=== PATIENT | female | born 1935 | race Caucasian/White ===

== ENCOUNTER 2017-02-04 17:03 | Emergency (ER) | payer MEDICARE, BC | END 2017-02-04 20:20 | disposition home or self-care (01) | LOC: D.ER 17:03 | DX: S40.011A Contusion of right shoulder, initial encounter (principal); W01.0XXA Fall on same level from slipping, tripping and stumbling without subsequent striking against object, initial encounter; Y93.89 Activity, other specified; Y92.019 Unspecified place in single-family (private) house as the place of occurrence of the external cause; S20.211A Contusion of right front wall of thorax, initial encounter; E11.9 Type 2 diabetes mellitus without complications ==

== ENCOUNTER 2017-04-21 06:55 | Outpatient (CLI) | payer MEDICARE, BC ==
--- NOTE | ~2017-04-21 | HEMODYNAMI ---
PATIENT:LIOR SHAH MEDICAL RECORD: [id number] : 35 LOCATION:[facility] ADMISSION DATE: 04/21/17 Generatedon:04/21/20179:17 Patient name: LIOR SHAH Patient #: [id number] SSN: D OB: 1935 Date of study: 04/21/2017 Page: Of Hemodynamic Procedure Report Patient Data Patient Demographics Procedure consent was obtained First Name: LIOR Gender: Female Last Name: PABOL : 1935 Middle Initial: L Age: 81 year(s) Patient #: [id number] Race: Unknown Additional ID: [id number] Contact details [address]: [address] [place] [address] State: [place] City: [facility] [place] Zip code: [address] Past Medical History Allergies Allergen Reaction Date Comments Reported Other allergy 04/21/2017 Codeine, Cortisone Admission Admission Data Admission Date: 04/21/2017 Admission Time: 6:55 Lab Results Lab Result Date: 04/21/2017 Lab Result Time: 8:00 Biochemistry Name Units Result Min Max BUN mg/dl 13 --(--*-)-- 7 18 Creatinine mg/dl 1 --(--*-)-- 0.6 1.3 CBC Name Units Result Min Max Hematocrit % 36.6 *-(----)-- 42 54 Hemoglobin g/dl 11.6 *-(----)-- 13.5 17.5 Procedure Procedure Types Cath Procedure Miscellaneous Procedures Moderate Sedation up to 15 minutes Peripheral Cath Diagnostic Procedure Cath Peripheral Xfzse-Hbkgnux-Ezi-Off Procedure Description Procedure Date Procedure Date: 04/21/2017 Procedure Start Time: 9:05 Procedure End Time: 9:13 Procedure Staff Name Function Je Baron MD Performing Physician Dominique Cruz RT Scrub Romain Salgado RT Scrub Zana Hannah RN Nurse Kobe Trujillo RT Monitor Woody Jones RN Information Technology Intern Procedure Data Cath Procedure Fluoroscopy Diagnostic fluoroscopy Total fluoroscopy Time: 1.1 time: 1.1 min min Diagnostic fluoroscopy Total fluoroscopy dose: 91 dose: 91 mGy mGy Contrast Material Contrast Material Type Amount (ml) Isovue 300 55 Entry Location Entry Primary Successful Side Size Upsize Upsize Entry Closure Succes sful Closure Location (Fr) 1 (Fr) 2 (Fr) Remarks Device Remarks Femoral Right 5 Fr Exoseal artery Estimated blood loss: 5 ml Diagnostic catheters Device Type Used For End Catheter Placement Cordis Tempo 5Fr UF Procedure catheter Procedure Complications No complications Procedure Medications Medication Administration Route Dosage 0.9% NaCl I.V. 100 ml/hr Oxygen NC 2 l/min Heparin Flush Bag added to field 2 bags (1000units/500ml NS) Lidocaine 2% added to field 20 Versed I.V. 0.5 mg Fentanyl I.V. 25 mcg Hemodynamics Rest HGB: 11.6 (g/dl) Heart Rate: 74 (bpm) Snapshots Pre Cath Intra NCS Post Cath Vital Signs Time Heart Resp SPO2 etCO2 [id number] NIBP (mmHg) Rhythm Pain Sedation Rate (ipm) (%) (mmHg) (mmHg) Status Level (bpm) 8:52:53 71 21 100 0 0 194/94(144) NSR 0 (11) 10(A) , No pain 8:57:46 68 20 100 0 0 191/80(148) NSR 0 (11) 10(A) , No pain 9:02:35 63 19 98 0 0 158/80(107) NSR 0 (11) 10(A) , No pain 9:07:17 67 15 95 0 0 158/88(112) NSR 0 (11) 10(A) , No pain 9:12:02 63 14 98 0 0 151/75(119) NSR 0 (11) 9(A) , No pain Medications Time Medication Route Dose Verified Delivered Reason Notes Effec tiveness by by 8:52:46 0.9% NaCl I.V. 100 Zana Zana Per ml/hr Brielle Hannah physician RN RN 8:53:02 Oxygen NC 2 Zana Zana Per l/min Brielle Hannah physician RN RN 8:53:17 Heparin Flush added 2 Zana Zana used for Bag to bags Brielle Hannah procedure (1000units/500ml field RN RN NS) 8:53:32 Lidocaine 2% added 20ml Zana Zana for local to vial Brielle Hannah anesthetic field RN RN 8:55:34 Versed I.V. 0.5 Zana Spann for mg Lorigan Lorigan sedation RN RN 9:03:56 Fentanyl I.V. 25 Zana Spann for mcg Lorigan Lorigan sedation RN professor computer science Log Time Note 8:15:18 Woody Jones RN sent for patient. Start room use. 8:39:26 Time tracking: Regular hours 8:39:30 Plan of Care:Hemodynamics will remain stable., Cardiac rhythm will remain stable., Comfort level will be maintained., Respiratory function will remain adequate., Patient/ family verbilizes understanding of procedure., Procedure tolerated without complication., Recovers from procedure without complications.. 8:39:43 H&P Date Dictated: 04/08/2017 Within 30 days and on chart., H&P Addendum completed by physician on day of procedure. (MUST COMPLETE FOR ALL OUTPATIENTS). 8:41:44 Lab Result : Creatinine 1 mg/dl 8:41:44 Lab Result : BUN 13 mg/dl 8:41:44 Lab Result : Hematocrit 36.6 % 8:41:44 Lab Result : Hemoglobin 11.6 g/dl 8:41:51 Patient received from Pre/Post Procedure Room to CCL 1 Alert and oriented. Tansferred to table in Supine position. 8:41:52 Warm blankets applied, and shani hugger turned on for patient comfort. 8:41:52 Correct patient and procedure confirmed by team. 8:41:54 Signed procedure consent form obtained from patient. 8:41:55 ECG and BP/O2 sat monitors applied to patient. 8:41:56 Pre-procedure instructions explained to patient. 8:41:56 Pre-op teaching completed and patient verbalized understanding. 8:41:58 Family in waiting room. 8:41:59 Patient NPO since Midnight. 8:42:15 Patient allergic to Other allergyCodeine, Cortisone 8:46:06 Is the patient allergic to Iodine/contrast media? No. 8:46:07 Is patient on blood thinner?No 8:46:08 Patient diabetic? Yes. 8:46:09 If diabetic: On Metformin? No 8:46:13 Previous problem with sedation/anesthesia? No ? 8:46:14 Snore? No 8:46:15 Sleep apnea? No 8:46:16 Deviated septum? No 8:46:16 Opens mouth fully? Yes 8:46:17 Sticks out tongue? Yes 8:46:19 Airway obstruction? No ? 8:46:21 Dentures? No ? 8:46:24 Patient pain scale 0/10 ?. 8:46:53 IV patent on arrival in left forearm with 0.9% NaCl at [facility]. 8:46:56 Lab results completed and on chart. 8:47:59 Pre procedure: right dorsailis pedis pulse Doppler 8:48:02 Pre procedure: left dorsailis pedis pulse 2+ Normal; easily identifiable; not easily obliterated 8:48:11 Bilateral groins area was prepped with chlora-prep and draped in sterile fashion 8:48:13 Alarms reviewed by R. N. 8:48:13 Sharps counted by scrub and verified by R.N. 8:48:18 Tegaderm 4 x 4 opened to sterile field. 8:48:19 Acist Manifold opened to sterile field. 8:48:19 Acist Hand Control opened to sterile field. 8:48:21 Acist Syringe opened to sterile field. 8:48:21 Bag Decanter opened to sterile field. 8:48:22 Medline Cath Pack opened to sterile field. 8:48:22 Terumo 5Fr [place] Sheath opened to sterile field. 8:48:23 St Savage 260cm J .035 wire opened to sterile field. 8:51:12 Vital chart was started 8:51:14 Baseline sample Acquired. 8:51:17 Rhythm: sinus rhythm 8:51:20 Full Disclosure recording started 8:52:46 0.9% NaCl 100 ml/hr I.V. was administered by Zana Hannah RN; Per physician; 8:53:02 Oxygen 2 l/min NC was administered by Zana Hannah RN; Per physician; 8:53:17 Heparin Flush Bag (1000units/500ml NS) 2 bags added to field was administered by Zana Hannah RN; used for procedure; 8:53:32 Lidocaine 2% 20ml vial added to field was administered by Zana Hannah RN; for local anesthetic; 8:54:46 --------ALL STOP TIME OUT------ 8:54:47 Final Timeout: patient, procedure, and site verified with staff and physician. All members of the team are in agreement. 8:54:58 Bilateral groins site verified by team. 8:55:04 Physical assessment completed. ASA score P 2 - A patient with mild systemic disease as per Je Baron MD. 8:55:09 Sedation plan: IV Moderate Sedation Versed, Fentanyl 8:55:34 Versed 0.5 mg I.V. was administered by Zana Hannah RN; for sedation; 9:03:24 Zero performed for pressure channel P1 9:03:56 Fentanyl 25 mcg I.V. was administered by Zana Hannah RN; for sedation; 9:05:25 Procedure started. 9:05:48 Local anesthetic to right femoral artery with Lidocaine 2% by Je Baron MD.INITIAL ACCESS ONLY 9:06:56 A 5 Fr sheath was inserted into the Right Femoral artery 9:08:25 A Cordis Tempo 5Fr UF catheter was advanced over the wire and used for Procedure. 9:08:59 Abdominal angiogram w/ runoff was performed. 9:09:02 Left leg runoff performed. 9:10:15 Right leg runoff performed. 9:10:20 Catheter removed. 9:10:27 Cordis 5Fr Exoseal opened to sterile field. 9:10:36 Sheath removed intact; hemostasis achieved with Exoseal to the Right Femoral artery. 9:10:38 Procedure ended.(Physican Out) 9:10:42 Contrast amount:Isovue 300 55ml. 9:10:47 Fluoroscopy time 01.10 minutes. 9:10:50 Fluoroscopy dose: 91 mGy 9:10:50 Flurop Dose total: 91 9:10:52 Sharps counted by scrub and verified by R.N. 9:10:53 Insertion/operative site no bleeding no hematoma. 9:10:55 Post-op/insertion site Right Femoral artery dressed using a 4 x 4 and Tegaderm. 9:10:58 Post right femoral artery:stable, soft, clean and dry 9:11:00 Post Procedure Pulses reassessed and unchanged 9:11:02 Post-procedure physical assessment completed. ASA score P 2 - A patient with mild systemic disease as per Je Baron MD. 9:11:05 Post procedure rhythm: unchanged. 9:11:07 Estimated blood loss: 5 ml 9:11:08 Post procedure instruction explained to patient.Patient verbalizes understanding. 9:11:08 Patient needs reinforcement of post procedure teaching. 9:11:39 Procedure type changed to Cath procedure, Miscellaneous Procedures, Moderate Sedation up to 15 minutes, Peripheral Cath Diagnostic Procedure, Cath Peripheral, Zwhsk-Ixgnmcu-Lum-Off 9:13:44 Procedure and supply charges have been captured, reviewed, submitted and are correct. 9:13:47 Procedure Complication : No complications 9:13:48 Vital chart was stopped 9:13:48 See physician's report for complete and final results. 9:13:50 Report given to Pre/Post Procedure Room. 9:13:52 Patient transfered to Pre/Post Procedure Room with Stretcher. 9:13:54 Procedure ended. 9:13:54 Full Disclosure recording stopped 9:13:59 End room use (Document Last) Device Usage Item Manufacture Quantity Catalog Hospital Part Current Minimal Lot# / Name Number Charge Number Stock Stock Osmin tyson# Code Tegaderm 1 [id number] [id number] [id number] 5 4 x 4 Acist Acist 1 75014 429704 [id number] [id number] 5 Manifold Medical Systems Inc Acist Acist 1 79434 259410 264338 505887 5 Hand Medical Control Systems Inc Acist Acist 1 40145 179464 122713 812821 20 Syringe Medical Systems Inc Bag Microtek 1 2002S 941210 28123 876146 5 Decanter Medical Inc. Medline Cardinal 1 [id number] 989994 72927 955989 5 Cath Health Pack Terumo Terumo 1 [id number] 860217 953806 [address] Savage 1 896202 528646 138251 718795 30 260cm J .035 wire Cordis Cardinal 1 [id number] 210702 475184 003003 10 Tempo Health 5Fr UF catheter Cordis Cardinal 1 EX500 141692 261596 819017 10 5Fr Health Exoseal Signature Audit [place] Stage Time Signature Unsigned Intra-Procedure 04/21/2017 Kobe Trujillo 9:17:41 AM RT(R) Signatures Monitor : Kobe Trujillo RT Signature : Date : Time : [facility] [address] [place] [address]
[2017-04-21] MEDS ORDERED: BAYER CHEWABLE81 MG PO (07:21)
[2017-04-21] MEDS ORDERED: FISH OIL 1,2001 CAP PO (07:21)
[2017-04-21] MEDS ORDERED: NYSTATIN ORAL SU5 ML PO (07:22)
[2017-04-21] MEDS ORDERED: CITRATE OF MAG300 ML PO (07:22)
[2017-04-21] MEDS ORDERED: OCUVITE TABLET1 TA1 PO (07:23)
[2017-04-21] MEDS ORDERED: OXYBUTYNIN CHLOR5 MG PO (07:23)
[2017-04-21] MEDS ORDERED: ZOLOFT100 MG PO (07:24)
[2017-04-21] MEDS ORDERED: TIKOSYN250 MCG PO (07:24)
[2017-04-21] MEDS ORDERED: OMEPRAZOLE40 MG PO (07:24)
[2017-04-21] MEDS ORDERED: VITAMIN D5000 UNIT PO (07:25)
[2017-04-21] MEDS ORDERED: VITAMIN B-12500 MC1 PO (07:25)
[2017-04-21] MEDS ORDERED: ACETAMINOPHEN500 M1 PO (07:25)
[2017-04-21 07:34] VITALS: BP 144/74; BMI 28.2
[2017-04-21 07:37] LABS: BASOPHILS 0.4 % (0-2); EOSINOPHILS 1.8 % (0-7); HEMATOCRIT 36.6 % (36.0-48.0); HEMOGLOBIN 11.6 g/dL (12-16); IMMATURE GRANULOCYTES 0.2 % (0-5); LYMPHOCYTES 28.3 % (15-50); MCH 27.2 pg (26.0-34.0); MCHC 31.7 g/dL (31.0-37.0); MCV 85.7 fL (80.0-100.0); MEAN PLATELET VOLUME 10.3 fL (7.4-10.4); MONOCYTES 10.7 % (2-11); NEUTROPHILS 58.6 % (40-80); PLATELET COUNT 131 10x3/uL (130-400); RBC 4.27 10x6/uL (4.00-5.40); RDW 16.2 % (11.5-14.5); WBC 4.9 10x3/uL (4.8-10.8)
[2017-04-21 08:21] LABS: ANION GAP 10.9 mmol/L (8-16); CALCIUM 9.5 mg/dL (8.5-10.1); CARBON DIOXIDE 28.3 mmol/L (21.0-32.0); POTASSIUM - SERUM 4.2 mmol/L (3.5-5.1)
--- NOTE | 2017-04-21 09:40 | NUR ---
2L NC, NO RESP DISTRESS NOTED. RIGHT GROIN 5F EXOSEAL CDI, NO BLEEDING OR HEMATOMA NOTED. NO C/O PAIN OR NAUSEA. VSS. INSTRUCTED PT TO KEEP HEAD FLAT ON PILLOW AND RIGHT LEG STRAIGHT. FAMILY AT BEDSIDE, CALL LIGHT WITHIN REACH.
--- NOTE | 2017-04-21 10:10 | NUR ---
RESTING QUIETLY WITH EYES CLOSED. RIGHT GROIN 5F EXOSEAL CDI, NO BLEEDING OR HEMATOMA NOTED. NO C/O PAIN OR NAUSEA. VSS. CALL LIGHT WITHIN REACH.
--- NOTE | 2017-04-21 10:25 | NUR ---
2L NC, NO RESP DISTRESS NOTED. RIGHT GROIN 5F EXOSEAL CDI, NO BLEEDING OR HEMATOMA NOTED. VSS. NO C/O AT THIS TIME. WILL CONTINUE TO MONITOR.
--- NOTE | 2017-04-21 10:55 | NUR ---
RESTING QUIETLY IN BED WITH EYES CLOSED. VSS. RIGHT GROIN 5F EXOSEAL CDI, NO BLEEDING OR HEMATOMA NOTED. NO C/O PAIN AT THIS TIME. CALL LIGHT WITHIN REACH.
--- NOTE | 2017-04-21 11:25 | NUR ---
RIGHT GROIN 5F EXOSEAL CDI, NO BLEEDING OR HEMATOMA NOTED. 2L NC, NO RESP DISTRESS NOTED. VSS. NO C/O PAIN. WILL CONTINUE TO MONITOR.
--- NOTE | 2017-04-21 12:00 | NUR ---
HOB ELEVATED 30 DEGREES. RIGHT GROIN 5F EXOSEAL CDI. SANDWICH TRAY AND DRINK GIVEN. NO C/O NAUSEA.
--- NOTE | 2017-04-21 12:22 | NUR ---
LEFT FA PIV D/C'D WITH CATHETER INTACT, BAND AID TO SITE. UP TO BEDSIDE TO GET DRESSED.
--- NOTE | 2017-04-21 12:31 | NUR ---
TO RESTROOM TO VOID.
--- NOTE | 2017-04-21 12:44 | NUR ---
DISCHARGE INSTRUCTIONS GIVEN, VERBALIZED UNDERSTANDING. TAKEN OUT VIA WHEELCHAIR BY CATH SENIOR AUDITOR. LEFT FACILITY WITH FAMILY MEMBER AND ALL PERSONAL BELONGINGS.
== END 2017-04-21 12:44 | disposition home or self-care (01) ==
LOC: D.CATH 06:55
PROVIDERS: Internal Medicine Cardiovascular Disease
DX: M79.605 Pain in left leg (principal); M79.604 Pain in right leg; Z01.812 Encounter for preprocedural laboratory examination

== ENCOUNTER 2017-05-07 15:26 | Emergency (ER) | payer MEDICARE, BC ==
[~2017-05-07 15:26] MED LIST: ACETAMINOPHEN500 M1 PO; BAYER CHEWABLE81 MG PO; CITRATE OF MAG300 ML PO; FISH OIL 1,2001 CAP PO; NYSTATIN ORAL SU5 ML PO; OCUVITE TABLET1 TA1 PO; OMEPRAZOLE40 MG PO; OXYBUTYNIN CHLOR5 MG PO; TIKOSYN250 MCG PO; VITAMIN B-12500 MC1 PO; VITAMIN D5000 UNIT PO; ZOLOFT100 MG PO
== END 2017-05-07 18:45 | disposition home or self-care (01) ==
LOC: D.ER 15:26
DX: S00.01XA Abrasion of scalp, initial encounter (principal); W01.0XXA Fall on same level from slipping, tripping and stumbling without subsequent striking against object, initial encounter; Y93.89 Activity, other specified; Y92.129 Unspecified place in nursing home as the place of occurrence of the external cause; S70.01XA Contusion of right hip, initial encounter; S90.01XA Contusion of right ankle, initial encounter; E11.9 Type 2 diabetes mellitus without complications

== ENCOUNTER 2017-05-17 13:02 | Inpatient (IN) | payer MEDICARE, BC ==
[2017-05-17 14:13] LABS: BASOPHILS 0.3 % (0-2); EOSINOPHILS 1.6 % (0-7); HEMATOCRIT 36.3 % (36.0-48.0); HEMOGLOBIN 11.4 g/dL (12-16); IMMATURE GRANULOCYTES 0.3 % (0-5); LYMPHOCYTES 25.1 % (15-50); MCH 27.3 pg (26.0-34.0); MCHC 31.4 g/dL (31.0-37.0); MCV 87.1 fL (80.0-100.0); MEAN PLATELET VOLUME 10.2 fL (7.4-10.4); MONOCYTES 9.1 % (2-11); NEUTROPHILS 63.6 % (40-80); PLATELET COUNT 176 10x3/uL (130-400); RBC 4.17 10x6/uL (4.00-5.40); RDW 16.2 % (11.5-14.5); WBC 5.7 10x3/uL (4.8-10.8)
[2017-05-17 14:24] LABS: ALBUMIN 3.6 g/dL (3.4-5.0); ANION GAP 12.5 mmol/L (8-16); BILIRUBIN - TOTAL 0.4 mg/dL (0.2-1.3); CALCIUM 9.5 mg/dL (8.5-10.1); CARBON DIOXIDE 28.6 mmol/L (21.0-32.0); POTASSIUM - SERUM 4.1 mmol/L (3.5-5.1); PROTEIN - SERUM 7.7 g/dL (6.4-8.2)
[2017-05-17 16:07] VITALS: BP 179/65
[2017-05-17] MEDS ORDERED: OXYBUTYNIN CHLOR5 MG PO (16:15)
[2017-05-17] MEDS ORDERED: ULTRACET TABLET1 TAB PO (16:18)
[2017-05-17] MEDS ORDERED: PRESERVISION AR1 CAP PO (16:18)
[2017-05-17 17:28] VITALS: BP 179/65; BMI 26.4
--- NOTE | 2017-05-17 19:30 | NUR ---
RECEIVED PT IN BED AAOX4 RESP UNLABORED ASSISTED TO BATHROOM PT TOLERATED WELL GENERALIZED WEAKNESS NOTED
[2017-05-17 19:57] VITALS: BP 141/66
[2017-05-17 23:49] VITALS: BP 114/57
[2017-05-18 02:39] LABS: APPEARANCE CLEAR (CLEAR); BILIRUBIN NEGATIVE (NEGATIVE); COLOR YELLOW (YELLOW); GLUCOSE NEGATIVE (NEGATIVE); KETONE NEGATIVE (NEGATIVE); NITRITE NEGATIVE (NEGATIVE); PROTEIN NEGATIVE (NEGATIVE); SPECIFIC GRAVITY 1.015 (1.005-1.020); UROBILINOGEN NORMAL (NORMAL)
[2017-05-18 02:40] LABS: BACTERIA FEW /hpf (NONE SEEN); EPITHELIAL CELLS 0-5 /hpf (0-5); RED CELLS - URINE 0-5 /hpf (0-5)
[2017-05-18 04:00] VITALS: BP 122/54
[2017-05-18 05:45] LABS: BASOPHILS 0.4 % (0-2); EOSINOPHILS 1.8 % (0-7); HEMOGLOBIN 11.5 g/dL (12-16); IMMATURE GRANULOCYTES 0.4 % (0-5); LYMPHOCYTES 25.1 % (15-50); MCH 27.1 pg (26.0-34.0); MCHC 31.1 g/dL (31.0-37.0); MCV 87.1 fL (80.0-100.0); MEAN PLATELET VOLUME 10.3 fL (7.4-10.4); MONOCYTES 9.9 % (2-11); NEUTROPHILS 62.4 % (40-80); PLATELET COUNT 192 10x3/uL (130-400); RBC 4.25 10x6/uL (4.00-5.40); RDW 16.3 % (11.5-14.5); WBC 4.9 10x3/uL (4.8-10.8)
[2017-05-18 06:16] LABS: ALBUMIN 3.3 g/dL (3.4-5.0); ANION GAP 12.3 mmol/L (8-16); BILIRUBIN - TOTAL 0.4 mg/dL (0.2-1.3); CALCIUM 9.5 mg/dL (8.5-10.1); CARBON DIOXIDE 28.7 mmol/L (21.0-32.0); CREATININE - SERUM 0.9 mg/dL (0.6-1.3); PROTEIN - SERUM 7.3 g/dL (6.4-8.2)
--- NOTE | 2017-05-18 07:43 | NUR ---
SLEEPING, NO DISTRESS NOTED, BREATHING EVEN UNLABORED, AROUSED TO VOICE, DENIES NEEDS, CALL LIGHT IN REACH, BED LOWEST POSITION, WILL CONTINUE TO MONITOR
[2017-05-18 07:50] VITALS: BP 111/61
[2017-05-18 07:51] LABS: T4 THYROXINE 8.7 ug/dL (4.7-13.3); THYROID STIMULATING HORMONE 1.36 uIU/mL (0.36-3.74)
--- NOTE | 2017-05-18 09:45 | NUR ---
Patient Name: LIOR SHAH Admission Status: Elective Accout number: [id number] Admission Date: 05-17-2017 : 1935 Admission Diagnosis: Attending: BLACK HERNÁNDEZ Current LOS: 1 Anticipated DC Date: 05-20-2017 Planned Disposition: Inpatient Rehab Primary Insurance: MEDICARE A & B Discharge Planning Comments: CM MET WITH PATIENT AND FAMILY REGARDING D/C NEEDS AND PLANS. DAUGHTER (JASPER) STATED HER FATHER AND MOTHER LIVE AT [facility]. THERE ARE NO STEPS OR STAIRS AT FACILITY PER DAUGHTER. PATIENT NEEDS ASSISTANCE WITH SHOWER, DRESSING, AND MEDS. PATIENT WAS USING A WALKER BEFORE HER FALLS. PATIENT IS A DIABETIC AND DAUGHTER STATED [facility] HAS NOT CHECKED HER SUGARS REGULARLY. PATIENTS PCP IS DR. HERNÁNDEZ AND PHARMACY IS [facility] [address]. PATIENTS FAMILY IS REQUESTING IP REHAB. CM WILL CONTINUE TO FOLLOW PATIENT WITH D/C NEEDS AND PLANS. PCP DR. HERNÁNDEZ [phone] JASPER BARAHONA [phone] OR [phone] Gaming Dealer: Janae Ibrahim Is the patient Alert and Oriented? Yes 0 * How many steps to enter\exit or inside your home? 0 0 * PCP DR. HERNÁNDEZ 0 * Pharmacy [facility] 0 * Preadmission Environment Assisted Living 0 * Facility Name [facility] * ADLs Partial Dependent 0 * Partial ADLs (Assistance needed) Ambulation Bathing Dressing Medication Management Toileting 0 * Equipment Bedside Commode Glucometer 0 * List name and contact numbers for known caregivers / representatives who currently or will assist patient after discharge: JASPER BARAHONA (DAUGHTER) [phone] OR [phone] * Community resources currently utilized Assisted Living 0 * Please name any agencies selected above. [facility] 0 * Additional services required to return to the preadmission environment? Yes 0 * Can the patient safely return to the preadmission environment? No 0 * Has this patient been hospitalized within the prior 30 days at any hospital? No 0 Grand Total: 0
[2017-05-18 12:23] VITALS: BP 107/67
--- NOTE | 2017-05-18 12:23 | NUR ---
SITTING UP IN BED EATING LUNCH, DENIES NEEDS, CALL LIGHT IN REACH WILL CONTINUE TO MONITOR
--- NOTE | 2017-05-18 13:19 | NUR ---
AWAKE AND ALERT WITH RESPIRATIONS EVEN AND NON LABORED. IV PATENT AND CALL LIGHT IN REACH. WILL CONTINUE WITH PLAN OF CARE.
[2017-05-18 15:08] VITALS: BMI 26.4
[2017-05-18 15:42] VITALS: BP 139/69
[2017-05-18 19:56] VITALS: BP 135/68
--- NOTE | 2017-05-18 20:09 | NUR ---
SPOKE WITH REGARDING HOME MEDICATION. HE STATED TO START HER ON HER TIKOSYN 250MCG BID AND HE WILL ADDRESS THE REST OF HER HOME MEDICATION IN THE MORNING.
[2017-05-18 23:56] VITALS: BP 112/55
[2017-05-19 04:00] VITALS: BP 93/56
[2017-05-19 05:23] LABS: BASOPHILS 0.5 % (0-2); EOSINOPHILS 1.9 % (0-7); HEMATOCRIT 35.2 % (36.0-48.0); HEMOGLOBIN 11.1 g/dL (12-16); IMMATURE GRANULOCYTES 0.3 % (0-5); LYMPHOCYTES 27.8 % (15-50); MCH 27.2 pg (26.0-34.0); MCHC 31.5 g/dL (31.0-37.0); MCV 86.3 fL (80.0-100.0); MEAN PLATELET VOLUME 9.7 fL (7.4-10.4); MONOCYTES 10.6 % (2-11); NEUTROPHILS 58.9 % (40-80); PLATELET COUNT 193 10x3/uL (130-400); RBC 4.08 10x6/uL (4.00-5.40); RDW 16.3 % (11.5-14.5); WBC 5.9 10x3/uL (4.8-10.8)
[2017-05-19 05:41] LABS: ALBUMIN 3.1 g/dL (3.4-5.0); ANION GAP 13.5 mmol/L (8-16); BILIRUBIN - TOTAL 0.3 mg/dL (0.2-1.3); CALCIUM 9.4 mg/dL (8.5-10.1); CARBON DIOXIDE 27.3 mmol/L (21.0-32.0); CREATININE - SERUM 0.9 mg/dL (0.6-1.3); POTASSIUM - SERUM 3.8 mmol/L (3.5-5.1)
--- NOTE | 2017-05-19 07:00 | NUR ---
REPORT RECEIVED, ASSUMED CARE OF PT. RESTING WITH EYES SHUT, EASILY AROUSED. NO NEEDS VOICED AT THIS TIME. LILIANA ALARM ON. R FOREARM IV INFUSING ORDERED, DRSG C/D/I. BED IN LOWEST POSITION, SIDE RAILS UP X 2, CALL LIGHT WITHIN REACH.
[2017-05-19 07:24] LABS: RAPID PLASMA REAGIN Non Reactive (Non Reactive)
[2017-05-19 08:30] VITALS: BP 119/64
--- NOTE | 2017-05-19 09:04 | NUR ---
Rehab Note- Acute Rehab prescreen order received. The patient has a pending Cardiology consult noted. The patient appears to be an appropriate acute rehab candidate at this time. Will continue to follow at this time. Thank you for this referral! Concetta Morfin RN Clinical Liaison, [facility]
--- NOTE | 2017-05-19 10:00 | NUR ---
REC'D IN ROOM AWAKE AND ALERT. RESP EVEN AND UNLABORED WITH NO DISTRESS NOTED. CAN EXRESS SOME NEEDS AND WANTS. NO C/O NOTED OR VOICED. ASSESSMENT COMPLETED. C/L IN REACH AT BEDSIDE.
[2017-05-19 12:13] VITALS: BP 117/57
[2017-05-19 15:48] VITALS: BP 127/58
--- NOTE | 2017-05-19 17:41 | NUR ---
RESTING WELL AT THIS TIME STILL NO C/O NOTED OR VOICED. C/L IN REACH AT BEDSIDE.
[2017-05-19 20:00] VITALS: BP 131/76
[2017-05-20] VITALS: BP 99/48
[2017-05-20 04:00] VITALS: BP 104/55
--- NOTE | 2017-05-20 08:45 | NUR ---
REC'D IN ROOM SITTIG ON SIDE OF BED EATTING BREAKFAST AWAKE AND ALERT. RESP EVEN AND UNLABORED WITH NO DISTRESS NOTED. NO C/O NOTED OR VOICED. ASSESSMENT COMPLETED AT THIS TIME. FAMILY AT BEDSIDE. C/L IN REACH .
[2017-05-20 08:50] VITALS: BP 142/67
--- NOTE | 2017-05-20 12:42 | NUR ---
NUTRITION F/U CHART REVIEWED, PT VISIT. TOLERATING REG DIET 75% INTAKE RECENT MEALS. ENSURE ONCE PER DAY. WILL CONTINUE TO PROVIDE DIET, MONITOR PO INTAKE. RD FOLLOWING
--- NOTE | 2017-05-20 12:59 | NUR ---
REHAB NOTE- SPOKE WITH THE PATIENT, SHE IS VERY INTERESTED IN [facility] RE[facility] WHEN READY FOR DISCHARGE FROM THE ACUTE HOSPITAL. SAROJ OLSON RN CLINICAL LIAISON, [facility]
[2017-05-20 13:03] VITALS: BP 129/58
--- NOTE | 2017-05-20 16:04 | NUR ---
CM NOTE: PATIENT IS DISCHARGING TO IP REHAB TODAY/FAMILY AWARE. IMM SERVED
[2017-05-20 16:45] VITALS: BP 122/65
[2017-05-20] MEDS ORDERED: PROTONIX40 MG PO (16:50)
[2017-05-20] MEDS ORDERED: SINEMET CR 50-1 EACH PO (16:53)
[2017-05-20] MEDS ORDERED: SINEMET 25-1001 EACH PO (16:53)
--- NOTE | 2017-05-20 17:43 | NUR ---
REPORT CALLED TO [facility]. TRANSFERRED PER WC
== END 2017-05-20 18:03 | DRG 57 ==
LOC: D.MS 13:02
PROVIDERS: Psychiatry & Neurology Neurology; ADMIT Family Medicine
DX: G20 Parkinson's disease (principal); R53.1 Weakness; I48.0 Paroxysmal atrial fibrillation; E11.42 Type 2 diabetes mellitus with diabetic polyneuropathy

== ENCOUNTER 2017-05-20 18:04 | Inpatient (IN) | payer MEDICARE, BC ==
[~2017-05-20 18:04] MED LIST changes: +PRESERVISION AR1 CAP PO; +PROTONIX40 MG PO; +SINEMET 25-1001 EACH PO; +SINEMET CR 50-1 EACH PO; +ULTRACET TABLET1 TAB PO
--- NOTE | 2017-05-20 20:05 | NUR ---
REST IN BED AND WATCH TV.
--- NOTE | 2017-05-20 23:03 | NUR ---
ASSISTED PT TO BATHROOM AND BACK TO THE BED.
[2017-05-20 23:15] VITALS: BP 125/60; BMI 25.8
--- NOTE | 2017-05-21 02:10 | NUR ---
IN BED, EYES CLOSED. APPEARS COMFORTABLE, LYING ON RIGHT SIDE.
--- NOTE | 2017-05-21 04:24 | NUR ---
REST QUIETLY IN BED, EYE CLOSE, CALL LIGHT IN REACH.
[2017-05-21 07:23] LABS: BASOPHILS 0.4 % (0-2); EOSINOPHILS 2.2 % (0-7); IMMATURE GRANULOCYTES 0.4 % (0-5); LYMPHOCYTES 27.3 % (15-50); MCH 27.2 pg (26.0-34.0); MCHC 31.4 g/dL (31.0-37.0); MCV 86.6 fL (80.0-100.0); MONOCYTES 8.6 % (2-11); NEUTROPHILS 61.1 % (40-80); PLATELET COUNT 184 10x3/uL (130-400); RBC 4.04 10x6/uL (4.00-5.40); RDW 16.2 % (11.5-14.5)
[2017-05-21 07:29] LABS: ANION GAP 12.8 mmol/L (8-16); CALCIUM 9.7 mg/dL (8.5-10.1); CARBON DIOXIDE 27.3 mmol/L (21.0-32.0); POTASSIUM - SERUM 4.1 mmol/L (3.5-5.1)
[2017-05-21 09:07] VITALS: BP 144/69
[2017-05-21 11:59] VITALS: BMI 25.7
--- NOTE | 2017-05-21 23:19 | NUR ---
REST IN BED AND WATCH TV.
--- NOTE | 2017-05-21 23:20 | NUR ---
ASSISTED PT TO BATHROOM AND BACK TO BED.
--- NOTE | 2017-05-21 23:25 | NUR ---
IN BED, EYES CLOSED. RESTING QUIETLY.
[2017-05-22 00:17] VITALS: BP 152/71
--- NOTE | 2017-05-22 01:44 | NUR ---
REST IN BED COMFORTABLY, CALL LIGHT IN REACH.
--- NOTE | 2017-05-22 07:31 | NUR ---
Sitting up in bed watching tv. alert and oriented x3. denies any needs or pain. No s/sx of acute distress. call light within reach, bed low, srx3, personal items within reach. will continue to monitor
[2017-05-22 08:09] VITALS: BP 124/62
--- NOTE | 2017-05-22 10:35 | NUR ---
D/C RT FOREARM SL IV CATHETER INTACT. APPLIED 2X2 GAUZE PRESSURE DRESSING. DENIES ANY NEEDS OR PAIN. WILL CONTINUE TO MONITOR
--- NOTE | 2017-05-22 13:45 | NUR ---
SITTING UP IN W/C LOOKING AT TV. DENIES ANY NEEDS OR PAIN. W/C BRAKES LOCKED, BOX ALARM ON, CALL LIGHT AND PERSONAL ITEMS WITHIN REACH. WILL CONTINUE TO MONITOR
--- NOTE | 2017-05-22 17:53 | NUR ---
SITTING UP IN W/C VISITING WITH FAMILY. DENIES ANY NEEDS OR PAIN. CALL LIGHT AND PERSONAL ITEMS WITHIN REACH, W/C BRAKES LOCKED, BOX ALARM ON. WILL CONTINUE TO MONITOR
[2017-05-22 19:00] VITALS: BP 106/58
--- NOTE | 2017-05-22 19:35 | NUR ---
PT UP IN BED WITH HOB UP FOR COMFORT. WATCHING TV. NO O2. NO IV. SOME STRESS INCONTINENCE. MIN. ASSIST. WALKER. SCD'S AT NIGHT. BED ALARM ON. BED IN LOWEST POSITION AND CALL LIGHT WITHIN REACH.
--- NOTE | 2017-05-22 23:35 | NUR ---
PT IN BED WITH HOB UP FOR COMFORT. EYES CLOSED. CHEST RISING AND FALLING. BED IN LOWEST POSITION AND CALL LIGHT WITHIN REACH.
--- NOTE | 2017-05-23 00:35 | NUR ---
RESTING QUIETLY, EYES CLOSED. APPEARS COMFORTABLE.
--- NOTE | 2017-05-23 04:30 | NUR ---
PT LYING IN BED WITH HOB UP FOR COMFORT. EYES CLOSED. RESP. EVEN. LILIANA ALARM ON. BED IN LOWEST POSITION AND CALL LIGHT WITHIN REACH.
[2017-05-23 05:37] LABS: BASOPHILS 0.5 % (0-2); EOSINOPHILS 1.4 % (0-7); HEMATOCRIT 34.7 % (36.0-48.0); HEMOGLOBIN 10.7 g/dL (12-16); IMMATURE GRANULOCYTES 0.2 % (0-5); MCH 26.9 pg (26.0-34.0); MCHC 30.8 g/dL (31.0-37.0); MCV 87.2 fL (80.0-100.0); MEAN PLATELET VOLUME 10.2 fL (7.4-10.4); MONOCYTES 8.8 % (2-11); NEUTROPHILS 59.1 % (40-80); PLATELET COUNT 185 10x3/uL (130-400); RBC 3.98 10x6/uL (4.00-5.40); WBC 5.7 10x3/uL (4.8-10.8)
[2017-05-23 05:43] LABS: ANION GAP 12.2 mmol/L (8-16); CALCIUM 9.6 mg/dL (8.5-10.1); CARBON DIOXIDE 28.9 mmol/L (21.0-32.0); POTASSIUM - SERUM 4.1 mmol/L (3.5-5.1)
--- NOTE | 2017-05-23 08:18 | NUR ---
SITTING UP ON SIDE OF BED EATING BREAKFAST. DENIES INCREASED PAIN. ALERT AND ORIENTED. CALL LIGHT IN REACH
[2017-05-23 09:00] VITALS: BP 193/64
--- NOTE | 2017-05-23 12:12 | NUR ---
SITTING UP IN ROOM EATING LUNCH. DENIES NEEDS OR PAIN.
--- NOTE | 2017-05-23 13:44 | NUR ---
Nutrition Follow Up: Pt stated that she felt very nauseated and could not eat her lunch. She said that she had diarrhea yesterday. Pt said that she did not feel well today. Pt said that her appetite had been okay prior to last night. Pt stated that she is not sleeping at night. Pt and said that she needed a bland diet because she cannot handle a lot of spices. Pt also asked that her meat be chopped. Will honor all requests. Pt is eating 63% meal avg on a regular diet. +BM 05/23/17. Meds and labs noted. Will change diet to regular GI bland with chopped meat per pt request. Will continue to honor food preferences. RD following.
--- NOTE | 2017-05-23 20:00 | NUR ---
PT UP IN BED WITH HOB UP FOR COMFORT. WATCHING TV. NO O2. NO IV. MIN. ASSIST. WALKER. SCD'S AT NIGHT. MEDS WHOLE IN APPLESAUCE. BED ALARM ON. BED IN LOWEST POSITION AND CALL LIGHT WITHIN REACH.
--- NOTE | 2017-05-23 20:02 | NUR ---
PT. IN BED SITTING ON THE SIDE OF HER BED WATCHING TV. NO VOICED NEEDS AND HER CALL LIGHT IS WITHIN REACH.
[2017-05-23 20:34] VITALS: BP 126/75
--- NOTE | 2017-05-24 | NUR ---
PT IN BED WITH HOB UP FOR COMFORT. EYES CLOSED. CHEST RISING AND FALLING. BED IN LOWEST POSITION AND CALL LIGHT WITHIN REACH.
--- NOTE | 2017-05-24 04:00 | NUR ---
PT LYING IN BED WITH HOB UP FOR COMFORT. EYES CLOSED. RESP. EVEN. SCD'S ON. BED IN LOWEST POSITION AND CALL LIGHT WITHIN REACH.
[2017-05-24 08:25] VITALS: BP 129/63
--- NOTE | 2017-05-24 09:57 | RHP ---
PATIENT: LIOR SHAH MEDICAL RECORD: [id number] ACCOUNT: [id number] LOCATION:[facility]1119 : 35 ADMISSION DATE: 05/20/17 REHABILITATION HISTORY AND PHYSICAL EXAMINATION POST ADMISSION PHYSICIAN EXAMINATION DATE OF ADMISSION: 05/20/2017 ADMITTING DIAGNOSIS: Parkinson's. HISTORY OF PRESENT ILLNESS: The patient is an elderly female patient who presents to inpatient rehab for a neurological condition/parkinsonism. She was admitted from the office for mental status changes, tremors and weakness. She has got a longstanding history of diabetes and resides at [facility] with her . She has been following frequently. She has been evaluated by neurologist. During her acute hospital stay, CT of her head showed some microvascular changes, mild hypophonia and hypomimia noted, generalized bradykinesia and rigidity of tone was noted. DTRs are 2+ and strength is 4/5 to lower extremities. Sensation is reduced to her mid leg. Station and gait reveals lack of postural reflexes, unable to find her point of balance with significant retropulsion. Short steps with a wide base. She is unable to stand or take any steps with assistance to prevent falls. She has got another tremor that progressively worsened and started on Sinemet 25/100 t.i.d. Has noted to have decrease in the tremor. She has been followed and diagnosed by the neurology with parkinsonism. She has noted hyperreflexia. She was moderately independent with use of rolling walker for mobility and has had multiple falls with it at her place of residence, but she was independent with her ADLs. She is currently moderate to max assist mobility, set up from moderate assist with her ADLs. She has been progressing well with new medication. She plans to return back to [facility] with her ; hopefully to get her prior level of functioning better. COMORBIDITIES: Include diabetes, peripheral neuropathy, parkinsonism, paroxysmal atrial fib, peripheral vascular disease, peripheral neuropathy, acute mental status changes, weakness and tremor. PAST MEDICAL HISTORY: Significant for TIA, neuropathy, weakness, cataracts, diabetes, AFib, depression, anxiety, arthritis, osteoporosis and peripheral vascular disease. ALLERGIES: NONSTEROIDAL ANTI-INFLAMMATORIES, CODEINE, AND CORTISONE. CURRENT MEDICATIONS: Include Zoloft 100 mg daily; oxybutynin 5 mg daily; Protonix 40 mg daily; omega 3 daily; B12 500 mcg daily; vitamin D 5000 units daily; beta carotene daily; aspirin 81 mg daily; Tikosyn 250 mcg b.i.d.; Sinemet 1 tab t.i.d., of the 25/100 she is on 1 tab b.i.d. of the 50/200. She is on Tylenol 500 mg at bedtime p.r.n. and polyethylene glycol 17 grams in 8 ounces of water daily. HABITS: No current alcohol or tobacco use. FAMILY HISTORY: Noncontributory. SOCIAL HISTORY: As above. The patient hopes to return back to [facility] with her . HISTORY AND PHYSICAL [id number] LIOR SHAH REVIEW OF SYSTEMS: GENERAL: Does complain of weakness. HEENT: She denies cold, cough, or congestion. CARDIOVASCULAR: Denies chest pain. PHYSICAL EXAMINATION: VITAL SIGNS: Stable, afebrile. GENERAL: A well-developed female in no acute distress upon exam. HEENT: Normocephalic and atraumatic. Mucosa moist. NECK: Supple. No lymphadenopathy. LUNGS: Clear at this time. HEART: Regular rate and rhythm. ABDOMEN: Benign. EXTREMITIES: No clubbing, cyanosis or edema. NEUROLOGIC: She does have a noted pill rolling tremor and flat affect consistent with Parkinson's. LABORATORY DATA: Her white count is 5.0, H&H of 11 and 35 and platelet count is 184. Sodium 141, potassium 4.1, BUN and creatinine of 24 and 1.0, blood sugars noted to be 111. ASSESSMENT: This is an 81-year-old female patient admitted to rehab with a working diagnosis of Parkinson's. The patient has potential to make improvement. We will institute the following multidisciplinary therapies including to, but not limited to physical, occupational, respiratory, speech, nutritional services, prosthetics and orthotics. Given her complex condition and risk for more complications, rehabilitation services cannot be provided at a low level of care such as group home facility. PLAN: 1. Admit to [facility] rehab for intensive inpatient therapy to include the following disciplines: A. Physical therapy to improve gait, all transfer skills and bed mobility to a modified independent level. B. Occupational therapy to improve acitivites of daily living to a modified independent level. C. Case management to assist with discharge planning and placement options. D. Nutrition to assist with nutritional needs. E. Rehabilitation nursing to assist in monitoring the patient's underlying medical conditions and to assist with any type of bowel or bladder management. 2. The patient's current medication and medical care will be continued. 3. Placed on standard fall precautions. 4. The patient's estimated length of stay is approximately 7 to 10 days. 5. Discuss this patient during care team staff meeting this week. TRANSINT:[id number] Voice Confirmation ID: [id number] DOCUMENT ID: [id number] DEJUAN notes whether there has been none or any medical/functional change since admission: - DEJUAN attests patient continues to be appropriate for IRF: HISTORY AND PHYSICAL [id number] LIOR SHAH SCOTT MD at 0957 CC: [id number] DICTATION DATE: 05/21/171927 SENIOR NETWORK ENGINEER: 05/21/172016 ADM IN [facility] [address] [place] [address]
--- NOTE | 2017-05-24 17:58 | NUR ---
SITTING UP EATING SUPPER. DENIES NEEDS. BED IN LOWEST POSITION.
--- NOTE | 2017-05-24 19:18 | NUR ---
RESTING IN BED WITH EYES OPEN AND TV ON. PLEASANT AND COOPERATIVE. ORIENTED X4. DENIES ANY PAIN AT THIS TIME
--- NOTE | 2017-05-24 21:24 | NUR ---
ANSWER CALL LIGHT AND REQUESTED ASSISTANCE TO TOILET. ASSISTED TO TOILET AND BACK TO BED. MEDICATION GIVEN AND TAKES MEDICATION WITHOUT DIFFICULTY.
[2017-05-24 21:45] VITALS: BP 124/61
--- NOTE | 2017-05-25 00:49 | NUR ---
RESTING IN BED WITH EYES CLOSED. NO S/S OF DISTRESS OBSERVED. CALL LIGHT AND OVERBED TABLE IN REACH. HOB ELEVATED PER PT PREFERENCE.
--- NOTE | 2017-05-25 04:03 | NUR ---
RESTING IN BED WITH EYES CLOSED. NO S/S OF DISTRESS OBSERVED. ASSISTED TO TOILET EARLIER. REQUIRES MIN ASSIST AND USES A WALKER. ASSISTED BACK TO BED. DENIES ANY PAIN. CALL LIGHT AND OVERBED TABLE IN REACH.
--- NOTE | 2017-05-25 05:36 | NUR ---
C/O CONSTIPATION AND REQUESTED SOMETHING TO HELP HER HAVE A BM. MIRALAX GIVEN PER ORDERS. WILL REPORT TO ONCOMMING.
--- NOTE | 2017-05-25 08:00 | NUR ---
SHIFT ASSMT COMPLETED.CL IN REACH.
[2017-05-25 08:21] VITALS: BP 127/61
--- NOTE | 2017-05-25 16:00 | NUR ---
FAMILY VISITING IN ROOM.
--- NOTE | 2017-05-25 17:21 | NUR ---
CARE TEAM MEETING: PATIENT DISCHARGING HOME IN AM BACK TO [facility]. DR HERNÁNDEZ IS HER PCP AND SHE WILL HAVE THERAPY WITH [facility]. SPOKE WITH HER SPOUSE AND HE REQUEST THAT THE [facility] CAME AND TRANSPORT PATIENT HOME. WILL CONTINUE TO FOLLOW WITH PATIENT AND WILL ASSIST WITH DISCHARGE NEEDS.
--- NOTE | 2017-05-25 19:16 | NUR ---
RESTING IN BED WITH EYES OPEN AND TV ON. DENIES ANY PAIN. HOB ELEVATED. CALL LIGHT AND OVERBED TABLE IN REACH.
[2017-05-25 20:03] VITALS: BP 120/57
--- NOTE | 2017-05-25 20:17 | NUR ---
RESTIN IN BED WITH EYES CLOSED. PLEASANT AND COOPERATIVE. DENIES ANY PAIN. TAKES MEDICATION WHOLE IN APPLESAUCE WITHOUT DIFFICULTY. CALL LIGHT AND OVERBED TABLE IN REACH.
--- NOTE | 2017-05-25 22:31 | NUR ---
UP IN B/R AT THIS TIME. USES CALL LIGHT FOR STAND BY ASSIST. PLEASANT AND COOPERATIVE, DENIES ANY PAIN.
--- NOTE | 2017-05-26 05:38 | NUR ---
REFUSED TO TAKE A SHOWER STATED " I'D RATHER WAIT TIL I GET HOME. I HAVE A GOOD SHOWER".
[2017-05-26 07:54] VITALS: BP 140/67
--- NOTE | 2017-05-26 08:01 | NUR ---
RESTING QUIETLY IN BED. CALL LIGHT IN REACH. BED IN LOWEST POSITION.
--- NOTE | 2017-05-26 10:56 | NUR ---
PATIENT DISCHARGING HOME WITH FAMILY TODAY BACK TO [facility]. [facility] WILL PROVIDE THERAPY AT HOME. NO NEW DME NEEDED AT THIS TIME. DR. HERNÁNDEZ 06/07/17 @ 3:30, DR. PURDY 06/13/17 @ 11:00. PATIENT CHOICE FOR HOME HEALTH AND [facility] FORM SIGNED, EXPLIANED AND FILED IN CHART. ORDERS HAVE BEEN FAXED WITH CONFORMATION RECIEVED
--- NOTE | 2017-05-26 12:22 | NUR ---
IN ROOM RESTING QUIETLY IN BED. CALL LIGHT IN REACH. ROLLING WALKER BY BED. SCHEDULED TO DC TODAY
--- NOTE | 2017-05-26 13:45 | NUR ---
REPORT CALLED TO JEB RECIO AT [facility]. PT PICKED UP BY TRANSPORTER AND ASST OUT TO [facility] IN W/C FOR SAFETY. SHE HAS ALL PERSONAL BELONGINGS WITH HER.
== END 2017-05-26 14:00 | disposition home health service (06) | DRG 57 ==
LOC: D.REHAB 18:04
PROVIDERS: ADMIT Emergency Medicine
DX: G20 Parkinson's disease (principal); E11.9 Type 2 diabetes mellitus without complications; R53.1 Weakness; R41.82 Altered mental status, unspecified; I48.0 Paroxysmal atrial fibrillation; E11.42 Type 2 diabetes mellitus with diabetic polyneuropathy; E11.51 Type 2 diabetes mellitus with diabetic peripheral angiopathy without gangrene; M47.812 Spondylosis without myelopathy or radiculopathy, cervical region; M48.02 Spinal stenosis, cervical region

== ENCOUNTER 2017-05-28 07:40 | Emergency (ER) | payer MEDICARE, BC ==
[2017-05-28 08:47] LABS: BASOPHILS 0.4 % (0-2); EOSINOPHILS 1.4 % (0-7); HEMATOCRIT 35.3 % (36.0-48.0); HEMOGLOBIN 11.3 g/dL (12-16); IMMATURE GRANULOCYTES 0.2 % (0-5); MCH 27.4 pg (26.0-34.0); MCV 85.5 fL (80.0-100.0); MEAN PLATELET VOLUME 9.6 fL (7.4-10.4); MONOCYTES 9.4 % (2-11); NEUTROPHILS 67.6 % (40-80); PLATELET COUNT 156 10x3/uL (130-400); RBC 4.13 10x6/uL (4.00-5.40); RDW 15.7 % (11.5-14.5); WBC 5.5 10x3/uL (4.8-10.8)
[2017-05-28 09:01] LABS: APPEARANCE CLEAR (CLEAR); BILIRUBIN NEGATIVE (NEGATIVE); COLOR YELLOW (YELLOW); GLUCOSE NEGATIVE (NEGATIVE); KETONE NEGATIVE (NEGATIVE); NITRITE NEGATIVE (NEGATIVE); PROTEIN NEGATIVE (NEGATIVE); SPECIFIC GRAVITY 1.015 (1.005-1.020); UROBILINOGEN NORMAL (NORMAL)
[2017-05-28 09:02] LABS: INR 1.19 (0.85-1.17)
[2017-05-28 09:07] LABS: ALBUMIN 3.6 g/dL (3.4-5.0); ANION GAP 16.6 mmol/L (8-16); BILIRUBIN - TOTAL 0.56 mg/dL (0.2-1.3); CALCIUM 9.4 mg/dL (8.5-10.1); CARBON DIOXIDE 25.2 mmol/L (21.0-32.0); POTASSIUM - SERUM 3.8 mmol/L (3.5-5.1); PROTEIN - SERUM 7.4 g/dL (6.4-8.2)
== END 2017-05-28 12:25 | disposition home or self-care (01) ==
LOC: D.ER 07:40
PROVIDERS: Emergency Medicine
DX: K92.1 Melena (principal); E11.9 Type 2 diabetes mellitus without complications

== ENCOUNTER 2017-08-11 17:41 | Observation (INO) | payer MEDICARE, BC ==
[~2017-08-11] VITALS: Ht 162.6 cm; Wt 72.7 kg
[2017-08-11 19:24] LABS: BASOPHILS 0.5 % (0-2); EOSINOPHILS 0.9 % (0-7); HEMATOCRIT 37.9 % (36.0-48.0); IMMATURE GRANULOCYTES 0.3 % (0-5); LYMPHOCYTES 18.4 % (15-50); MCH 27.1 pg (26.0-34.0); MCHC 31.7 g/dL (31.0-37.0); MCV 85.7 fL (80.0-100.0); MEAN PLATELET VOLUME 9.7 fL (7.4-10.4); NEUTROPHILS 70.9 % (40-80); PLATELET COUNT 155 10x3/uL (130-400); RBC 4.42 10x6/uL (4.00-5.40); RDW 16.4 % (11.5-14.5); WBC 6.5 10x3/uL (4.8-10.8)
[2017-08-11 19:48] LABS: ANION GAP 16.6 mmol/L (8-16); CALCIUM 9.7 mg/dL (8.5-10.1); CREATININE - SERUM 1.1 mg/dL (0.6-1.3); MAGNESIUM - SERUM 2.8 mg/dL (1.8-2.4); POTASSIUM - SERUM 3.6 mmol/L (3.5-5.1); THYROID STIMULATING HORMONE 2.46 uIU/mL (0.36-3.74)
[2017-08-11 20:00] VITALS: BP 151/67
[2017-08-11 20:20] VITALS: BP 151/67; Ht 162.6 cm; Wt 72.7 kg
[2017-08-11] MEDS ORDERED: OXYBUTYNIN CHLOR5 MG PO (21:14)
[2017-08-11] MEDS ORDERED: BIOTIN5 MG PO (21:23)
[2017-08-11] MEDS ORDERED: MAGNESIUM CITRATE PO (21:43)
[2017-08-12] VITALS: BP 146/63
[2017-08-12 04:46] VITALS: BP 108/55
[2017-08-12 08:45] VITALS: BP 148/53
[2017-08-12 12:32] VITALS: BP 116/51
[2017-08-12 16:27] VITALS: BP 113/50
[2017-08-12 20:00] VITALS: BP 123/61
[2017-08-13] MEDS ORDERED: COLACE100 MG PO (06:14)
[2017-08-13] MEDS ORDERED: MIRALAX17 GM PO (06:15)
[2017-08-13] MEDS ORDERED: MILK OF MAGNESI30 ML PO (06:15)
[2017-08-13 08:49] VITALS: BP 165/76
== END 2017-08-13 09:45 | disposition home or self-care (01) ==
LOC: D.ER 17:41 → D.MS 19:05 → OBSVTIME 20:03 → D.MS 08-13 09:45
PROVIDERS: Emergency Medicine
DX: K59.09 Other constipation (principal); R53.1 Weakness

== ENCOUNTER 2017-09-20 10:06 | Emergency (ER) | payer MEDICARE, BC ==
[2017-08-11 20:20] VITALS: BMI 27.5
[~2017-09-20 10:06] MED LIST changes: +BIOTIN5 MG PO; +COLACE100 MG PO; +MAGNESIUM CITRATE PO; +MILK OF MAGNESI30 ML PO; +MIRALAX17 GM PO
[2017-09-20 11:27] LABS: BASOPHILS 0.4 % (0-2); EOSINOPHILS 1.2 % (0-7); HEMATOCRIT 34.9 % (36.0-48.0); HEMOGLOBIN 10.9 g/dL (12-16); IMMATURE GRANULOCYTES 0.2 % (0-5); MCH 27.2 pg (26.0-34.0); MCHC 31.2 g/dL (31.0-37.0); MEAN PLATELET VOLUME 9.7 fL (7.4-10.4); MONOCYTES 9.7 % (2-11); NEUTROPHILS 60.5 % (40-80); PLATELET COUNT 136 10x3/uL (130-400); RBC 4.01 10x6/uL (4.00-5.40); RDW 16.5 % (11.5-14.5); WBC 5.2 10x3/uL (4.8-10.8)
[2017-09-20 11:49] LABS: ALBUMIN 3.5 g/dL (3.4-5.0); ALKALINE PHOSPHATASE 124 U/L (46-116); ALT (SGPT) 12 U/L (10-68); CALC OSMOLALITY 279 mosm/kg (275-300); CALCIUM 9.5 mg/dL (8.5-10.1); CARBON DIOXIDE 27.6 mmol/L (21.0-32.0); CHLORIDE - SERUM 104 mmol/L (98-107); CREATININE - SERUM 0.9 mg/dL (0.6-1.3); GLUCOSE 102 mg/dL (74-106); POTASSIUM - SERUM 3.9 mmol/L (3.5-5.1); PROTEIN - SERUM 7.3 g/dL (6.4-8.2); SODIUM 140 mmol/L (136-145); UREA NITROGEN 14 mg/dL (7-18); eGFR NON AFRICAN AMERICAN 63 mL/min (90-120)
[2017-09-20 11:52] LABS: TROPONIN-I < 0.017 ng/mL (0.000-0.060)
[2017-09-20 12:19] LABS: APPEARANCE HAZY (CLEAR); BILIRUBIN NEGATIVE (NEGATIVE); COLOR YELLOW (YELLOW); GLUCOSE NEGATIVE (NEGATIVE); KETONE NEGATIVE (NEGATIVE); NITRITE NEGATIVE (NEGATIVE); PROTEIN NEGATIVE (NEGATIVE); UROBILINOGEN NORMAL (NORMAL)
== END 2017-09-20 13:35 | disposition home or self-care (01) ==
LOC: D.ER 10:06
PROVIDERS: Physician Assistant
DX: R11.10 Vomiting, unspecified (principal); R19.7 Diarrhea, unspecified; R10.9 Unspecified abdominal pain; K50.90 Crohn's disease, unspecified, without complications

== ENCOUNTER 2017-09-27 04:24 | Inpatient (IN) | payer MEDICARE, BC ==
[~2017-09-27] VITALS: Ht 162.6 cm; Wt 72.7 kg
[2017-09-27 05:19] LABS: BASOPHILS 0.4 % (0-2); EOSINOPHILS 1.4 % (0-7); HEMATOCRIT 33.9 % (36.0-48.0); HEMOGLOBIN 10.8 g/dL (12-16); IMMATURE GRANULOCYTES 0.2 % (0-5); MCH 27.6 pg (26.0-34.0); MCHC 31.9 g/dL (31.0-37.0); MCV 86.7 fL (80.0-100.0); MEAN PLATELET VOLUME 9.8 fL (7.4-10.4); MONOCYTES 12.6 % (2-11); NEUTROPHILS 68.4 % (40-80); PLATELET COUNT 117 10x3/uL (130-400); RBC 3.91 10x6/uL (4.00-5.40); RDW 16.4 % (11.5-14.5)
[2017-09-27 05:43] LABS: ALBUMIN 3.4 g/dL (3.4-5.0); ALKALINE PHOSPHATASE 103 U/L (46-116); ALT (SGPT) 28 U/L (10-68); CALC OSMOLALITY 274 mosm/kg (275-300); CALCIUM 8.6 mg/dL (8.5-10.1); CARBON DIOXIDE 22.5 mmol/L (21.0-32.0); CHLORIDE - SERUM 102 mmol/L (98-107); CREATININE - SERUM 0.9 mg/dL (0.6-1.3); GLUCOSE 120 mg/dL (74-106); POTASSIUM - SERUM 3.8 mmol/L (3.5-5.1); PROTEIN - SERUM 7.2 g/dL (6.4-8.2); SODIUM 137 mmol/L (136-145); UREA NITROGEN 13 mg/dL (7-18); eGFR NON AFRICAN AMERICAN 63 mL/min (90-120)
[2017-09-27 05:52] LABS: CHOLESTEROL, TOTAL 252 mg/dL (0-200); CKMB 0.6 U/L (0.0-3.6); CREATINE KINASE 51 UL (21-215); HDL CHOLESTEROL 36 mg/dL (32-96); LDL CHOLESTEROL 188 mg/dL (0-100); LDL-HDL RATIO 5.2 ratio (1.5-3.5); PRO BNP 204 pg/mL (0-450); TRIGLYCERIDE 143 mg/dL (30-200); TROPONIN-I < 0.017 ng/mL (0.000-0.060)
[2017-09-28 06:33] LABS: BASOPHILS 0.2 % (0-2); EOSINOPHILS 1.7 % (0-7); HEMATOCRIT 32.2 % (36.0-48.0); HEMOGLOBIN 10.1 g/dL (12-16); IMMATURE GRANULOCYTES 0.4 % (0-5); LYMPHOCYTES 20.2 % (15-50); MCH 27.2 pg (26.0-34.0); MCHC 31.4 g/dL (31.0-37.0); MCV 86.8 fL (80.0-100.0); MEAN PLATELET VOLUME 9.6 fL (7.4-10.4); MONOCYTES 12.1 % (2-11); NEUTROPHILS 65.4 % (40-80); PLATELET COUNT 109 10x3/uL (130-400); RBC 3.71 10x6/uL (4.00-5.40); RDW 16.7 % (11.5-14.5); WBC 4.7 10x3/uL (4.8-10.8)
[2017-09-28 06:57] LABS: CALC OSMOLALITY 278 mosm/kg (275-300); CALCIUM 8.2 mg/dL (8.5-10.1); CARBON DIOXIDE 22.3 mmol/L (21.0-32.0); CHLORIDE - SERUM 106 mmol/L (98-107); CREATININE - SERUM 0.7 mg/dL (0.6-1.3); GLUCOSE 108 mg/dL (74-106); POTASSIUM - SERUM 3.6 mmol/L (3.5-5.1); SODIUM 140 mmol/L (136-145); UREA NITROGEN 9 mg/dL (7-18); eGFR NON AFRICAN AMERICAN 85 mL/min (90-120)
[2017-09-28 10:12] LABS: APPEARANCE CLEAR (CLEAR); BILIRUBIN NEGATIVE (NEGATIVE); COLOR STRAW (YELLOW); GLUCOSE NEGATIVE (NEGATIVE); KETONE NEGATIVE (NEGATIVE); NITRITE NEGATIVE (NEGATIVE); PROTEIN NEGATIVE (NEGATIVE); UROBILINOGEN NORMAL (NORMAL)
[2017-09-28 10:13] LABS: BACTERIA FEW /hpf (NONE SEEN); EPITHELIAL CELLS 0-5 /hpf (0-5); RED CELLS - URINE 0-5 /hpf (0-5); WHITE CELLS - URINE RARE /hpf (0-5)
[2017-09-28 20:25] VITALS: Ht 162.6 cm; Wt 72.7 kg
[2017-09-28 22:09] VITALS: BP 114/57
[2017-09-29 01:29] VITALS: BP 124/56
[2017-09-29 04:33] VITALS: BP 126/54
[2017-09-29 07:57] VITALS: BP 125/56
[2017-09-29 11:34] LABS: BASOPHILS 0.5 % (0-2); EOSINOPHILS 1.6 % (0-7); HEMATOCRIT 33.6 % (36.0-48.0); HEMOGLOBIN 10.5 g/dL (12-16); IMMATURE GRANULOCYTES 0.2 % (0-5); LYMPHOCYTES 29.6 % (15-50); MCH 27.4 pg (26.0-34.0); MCHC 31.3 g/dL (31.0-37.0); MCV 87.7 fL (80.0-100.0); MONOCYTES 10.1 % (2-11); PLATELET COUNT 116 10x3/uL (130-400); RBC 3.83 10x6/uL (4.00-5.40); RDW 16.6 % (11.5-14.5); WBC 4.4 10x3/uL (4.8-10.8)
[2017-09-29 13:07] VITALS: BP 137/67
[2017-09-29 16:18] VITALS: BP 120/69
[2017-09-29 20:00] VITALS: BP 106/55
[2017-09-30 04:00] VITALS: BP 120/58
[2017-09-30 07:44] VITALS: BP 117/72
[2017-09-30 12:21] VITALS: BP 108/51
[2017-09-30] MEDS ORDERED: LEVAQUIN750 MG PO (13:43)
== END 2017-09-30 17:55 | DRG 195 ==
LOC: D.ER 04:24 → D.MS 06:18 → D.EDHOLD 06:18 → D.MS 09-28 15:44
PROVIDERS: Family Medicine
DX: J18.9 Pneumonia, unspecified organism (principal); R53.1 Weakness; E11.40 Type 2 diabetes mellitus with diabetic neuropathy, unspecified

== ENCOUNTER 2017-09-30 16:34 | Inpatient (IN) | payer MEDICARE, BC ==
[~2017-09-30] VITALS: Ht 162.6 cm; Wt 72.6 kg
--- NOTE | ~2017-09-30 | RHP ---
PATIENT: LIOR SHAH MEDICAL RECORD: [id number] ACCOUNT: [id number] LOCATION:[facility]1117 : 35 ADMISSION DATE: 09/30/17 REHABILITATION HISTORY AND PHYSICAL EXAMINATION POST ADMISSION PHYSICIAN EXAMINATION POST-ADMISSION PHYSICAL EXAMINATION AND HISTORY AND PHYSICAL DATE OF ADMISSION: 09/30/2017 ADMITTING DIAGNOSIS: Pneumonia. HISTORY OF PRESENT ILLNESS: The patient is admitted to the inpatient rehab with a working diagnosis of pneumonia. The patient is 82 years of age. She presented to Emergency Room on 09/27 with complaints of shortness of breath, cough, fever, and chills and findings suggestive of pneumonia. She was admitted to the hospital with suspected exacerbation of COPD and pneumonia. She continued to improve throughout her hospital stay with breathing. Continued to have ongoing weakness during her stay and was evaluated by physical therapy. Physical therapy felt that she did need rehabilitation for weakness. She was subsequently discharged to rehabilitation for physical strengthening and inpatient therapy of interferon and monitoring and improvement of her pneumonia. Got a history of Parkinson's, neuropathy, TIA, diabetes, AFib. She lives in [facility] with her . She was moderately independent with a rolling walker and moderately independent with ADLs prior to this hospitalization. She is currently set up for mod assist with her ADLs and mod assist to total assist for mobility. She has been in acute inpatient rehab unit in the past and has very good outcome. She was able to return back to [facility] with her . She and her daughter would like to get this done and bring her back at her prior level of functioning or better. Comorbidities include pneumonia, cough, weakness, Parkinson's, tobacco smoking, neuropathy, diabetes, AFib, acid reflux, and arthritis. PAST MEDICAL HISTORY: Significant for cataracts, diabetes, AFib, peripheral vascular disease, Parkinson's, tobacco use, kidney stones, UTI, acid reflux, arthritis, TIA, neuropathy, and weakness. PAST SURGICAL HISTORY: Includes angioplasty with stents, hysterectomy, left endarterectomy, rotator cuff surgery, and bladder repair. ALLERGIES: NONSTEROIDAL ANTI-INFLAMMATORIES, CODEINE, AND CORTISONE. CURRENT MEDICATIONS: Include polyethylene glycol 17 grams in 8 ounces of water daily, Zoloft 100 mg daily, Protonix 40 mg daily, milk of mag 30 cc daily, Levaquin 750 mg daily, omega-3 daily, B12 at 500 mg daily, vitamin D 5000 units daily, aspirin chewable 81 mg daily, Tikosyn 250 mcg b.i.d., Colace 200 mg at bedtime, Sinemet 25/100 one tab t.i.d., and Tylenol 500 mg at bedtime. HABITS: No current alcohol or tobacco use. FAMILY HISTORY: Noncontributory. SOCIAL HISTORY: The patient hopes to return back out to [facility] with her . HISTORY AND PHYSICAL [id number] LIOR SHAH REVIEW OF SYSTEMS: GENERAL: Does complain of weakness. HEENT: Does complain of cold, cough, congestion. CARDIOVASCULAR: Denies any chest pain. PHYSICAL EXAMINATION: VITAL SIGNS: Stable, afebrile. GENERAL: Elderly female, in no acute distress upon exam. HEENT: Normocephalic and atraumatic. Mucosa moist. NECK: Supple. No lymphadenopathy. LUNGS: Clear at this time. HEART: Irregular rate and rhythm. ABDOMEN: Benign. EXTREMITIES: No clubbing, cyanosis or edema. NEUROLOGIC: Nonfocal. She does have some noted confusion. LABORATORY DATA: White count 3.7, H&H of 10 and 33, and platelet count is 141. Sodium 142, potassium 4.1, BUN and creatinine of 16 and 0.9, blood sugar is noted to be 95. ASSESSMENT: This 82-year-old female patient admitted to rehab with a working diagnosis of pneumonia complicated by Parkinson's. The patient has potential to make improvement. We will institute the following multidisciplinary therapies including, but not limited to physical, occupational, respiratory, speech, nutritional services, prosthetics and orthotics. Given her complex condition and risk for more complications, rehabilitation services cannot be provided at a low level of care such as a fpc facility. PLAN: 1. Admit to [facility] for intensive inpatient therapy to include the following disciplines: A. Physical therapy to improve gait, all transfer skills and bed mobility to a modified independent level. B. Occupational therapy to improve activities of daily living to a modified independent level. C. Case management to assist with discharge planning and placement options. D. Nutrition to assist with nutritional needs. E. Rehabilitation nursing to assist in monitoring the patient's underlying medical conditions and to assist with any type of bowel or bladder management. 2. The patient's current medications will be continued. 3. The patient will be placed on standard fall precautions. 4. The patient's estimated length of stay is approximately 7-10 days. 5. We will discuss this patient during care team staff meeting this week. TRANSINT:[id number] Voice Confirmation ID: [id number] DOCUMENT ID: [id number] DEJUAN notes whether there has been none or any medical/functional change since admission: - No change since preadmission screen. DEJUAN attests patient continues to be appropriate for IRF: - Continues to be appropriate. HISTORY AND PHYSICAL [id number] LIOR SHAH SCOTT MD at 1139 CC: [id number] DICTATION DATE: 10/01/17 1606 CLINICAL IMMUNOLOGIST: 10/01/17 2135 DIS IN 10/03/17 [facility] [address] [place] [address]
--- NOTE | ~2017-09-30 | DS ---
PATIENT:LIOR SHAH :35 MEDICAL RECORD: [id number] DISCHARGE SUMMARY ADMISSION DATE: 09/30/17 DISCHARGE DATE: 10/03/17 This is a discharge dated 10/03/2017 from inpatient rehab. PRIMARY DIAGNOSIS: Decreased functional ability and ability to provide activities of daily living secondary to pneumonia. SECONDARY DIAGNOSES: 1. COPD. 2. Parkinson disease. 3. Neuropathy. 4. Diabetes. 5. Atrial fibrillation. 6. Gastroesophageal reflux disease. 7. Tobacco abuse. 8. Peripheral vascular disease. 9. UTI. HOSPITAL COURSE: Full H&P is located elsewhere on the chart on this 82-year-old female who was admitted to inpatient rehab for physical therapy and occupational therapy to improve gait, transfer skills, bed mobility, and activities of daily living to a modified independent level. She was evaluated by PT and OT and their plans of care were followed. She required intermediate care for observation and assessment and medication administration. Fingerstick blood sugars were monitored throughout her hospital stay with appropriate adjustment in medications as needed. Electrolytes were managed by protocol. She was on Levaquin for antibiotic coverage of UTI. She was cooperative with therapies, progressing towards goals. Case management was involved for discharge planning. She was considered stable for discharge on 10/03/2017. DISCHARGE MEDICATIONS: As per discharge medication reconciliation. DISCHARGE DISPOSITION: The patient is discharged home. She will continue her current diet and level of activity and will follow up with primary care and specialists as directed. At least 30 minutes was spent in this discharge activity. TRANSINT:[id number] Voice Confirmation ID: [id number] DOCUMENT ID: [id number] Dictated By: YANET PAGAN I have interviewed/examined the above patient and agree with these documented findings. DISCHARGE SUMMARY REPORT [id number] LIOR SHAH SCOTT MD at 1344 at 1344 CC: [id number] DICTATION DATE: 10/23/17 1836 VAN LOADER: 10/24/17 0149 DIS IN 10/03/17 [facility] [address] [place] [address]
[~2017-09-30 16:34] MED LIST changes: +LEVAQUIN750 MG PO
[2017-09-30 20:43] VITALS: BP 146/78
[2017-09-30 22:11] VITALS: BMI 27.5
[2017-10-01 06:56] LABS: BASOPHILS 0.5 % (0-2); HEMOGLOBIN 10.3 g/dL (12-16); IMMATURE GRANULOCYTES 0.8 % (0-5); LYMPHOCYTES 35.1 % (15-50); MCHC 31.2 g/dL (31.0-37.0); MCV 86.6 fL (80.0-100.0); MEAN PLATELET VOLUME 9.8 fL (7.4-10.4); MONOCYTES 10.3 % (2-11); NEUTROPHILS 50.3 % (40-80); RBC 3.81 10x6/uL (4.00-5.40); RDW 16.4 % (11.5-14.5); WBC 3.7 10x3/uL (4.8-10.8)
[2017-10-01 07:12] LABS: ANION GAP 12.8 mmol/L (8-16); CALCIUM 9.5 mg/dL (8.5-10.1); CARBON DIOXIDE 27.3 mmol/L (21.0-32.0); CREATININE - SERUM 0.9 mg/dL (0.6-1.3); POTASSIUM - SERUM 4.1 mmol/L (3.5-5.1)
[2017-10-01 07:17] LABS: PLATELET COUNT 141 10x3/uL (130-400)
[2017-10-01 09:01] VITALS: BP 115/79
[2017-10-01 12:43] VITALS: Ht 162.6 cm; Wt 72.6 kg
[2017-10-02 01:11] VITALS: BP 148/74
[2017-10-02 09:48] VITALS: BP 175/89
[2017-10-03 00:27] VITALS: BP 147/80
[2017-10-03 07:11] LABS: BASOPHILS 0.6 % (0-2); EOSINOPHILS 1.8 % (0-7); HEMATOCRIT 34.2 % (36.0-48.0); HEMOGLOBIN 10.8 g/dL (12-16); IMMATURE GRANULOCYTES 0.8 % (0-5); LYMPHOCYTES 31.2 % (15-50); MCH 27.3 pg (26.0-34.0); MCHC 31.6 g/dL (31.0-37.0); MCV 86.6 fL (80.0-100.0); MONOCYTES 11.3 % (2-11); NEUTROPHILS 54.3 % (40-80); RBC 3.95 10x6/uL (4.00-5.40); RDW 16.1 % (11.5-14.5)
[2017-10-03 07:25] LABS: ANION GAP 14.6 mmol/L (8-16); CALCIUM 9.6 mg/dL (8.5-10.1); CARBON DIOXIDE 27.4 mmol/L (21.0-32.0); CREATININE - SERUM 0.9 mg/dL (0.6-1.3)
[2017-10-03 07:34] LABS: PLATELET COUNT 179 10x3/uL (130-400)
[2017-10-03 08:00] VITALS: BP 102/50
[2017-10-03] MEDS ORDERED: PROTONIX40 MG PO (12:26)
[2017-10-03] MEDS ORDERED: OCUVITE TABLET1 TA1 (12:28)
== END 2017-10-03 13:20 | disposition home or self-care (01) | DRG 195 ==
LOC: D.REHAB 16:34
PROVIDERS: Emergency Medicine
DX: J18.9 Pneumonia, unspecified organism (principal); R05 Cough; R53.1 Weakness; G20 Parkinson's disease; F17.200 Nicotine dependence, unspecified, uncomplicated; G62.9 Polyneuropathy, unspecified; E11.9 Type 2 diabetes mellitus without complications; I48.91 Unspecified atrial fibrillation; K21.9 Gastro-esophageal reflux disease without esophagitis

== ENCOUNTER 2017-10-04 21:52 | Inpatient (IN) | payer MEDICARE, BC ==
[~2017-10-04] VITALS: Ht 162.6 cm; Wt 62.3 kg
--- NOTE | ~2017-10-04 | EC ---
PATIENT:LIOR SHAH DATE OF SERVICE: 10/05/17 SEX: F MEDICAL RECORD: [id number] DATE OF : 35 LOCATION:D.M2 D.213 AGE OF PATIENT: 82 ADMISSION DATE: 10/05/17 REFERRING PHYSICIAN: INTERPRETING PHYSICIAN: GARRETT VINES MD ECHOCARDIOGRAM REPORT ECHO CHARGES 4 ECHO COMPLETE CLINICAL DIAGNOSIS: SOB ECHOCARDIOGRAPHIC MEASUREMENTS (adult normal given) AC root (d.<3.7cm) 3.6 cm LV Septum d (<1.2 cm> 1.5 cm Valve Excursion 1.6 cm LV Septum (systole) 1.6 cm Left Atria (s.<4.0cm> 3.6 cm LVPW d(<1.2cm) 1.4 cm RV (d.<2.3cm) 3.9 cm LVPW (sytole) 1.7 cm LV diastole(<5.6CM) 4.9 cm MV E-F(>70mm/sec) cm LV systole 3.2 cm LVOT Diameter 1.7 cm MV exc.(>10mm) 1.2 cm Est.ejection fraction (50-75%) % Pericardial Effusion N DOPPLER: LVIT cm/sec A 96.0 cm/sec E 86.0 cm/sec LA cm/sec RVSP 23 mmHg LVOT 105 cm/sec AOP1/2T m/s Asc. Ao 165 cm/sec RVOT 79 cm/sec RA cm/sec PA 125 cm/sec AV Gradient Peak 10.84mmHg AV Mean 6.15 mmHg AV Area 1.4 cm MV Gradient Peak 4.97 mmHg MV Mean 2.23 mmHg MV Area cm COMMENTS: Senior Telecommunications Consultant: Riley CAGE Hall Manager: 3 Dr. Medel TAPE# PACS DATE OF SERVICE: 10/07/2017 PROCEDURE: Echocardiogram. FINDINGS: 1. Left ventricular chamber size is within normal limits. Left ventricular systolic function is normal, ejection fraction estimated at 60%. 2. The left atrium is 3.6 cm and normal. Right atrium and right ventricle chamber sizes are mildly dilated. 3. Valvular structures have normal structure and motion. ECHOCARDIOGRAM REPORT [id number] LIOR SHAH 4. Doppler interrogation reveals trace mitral regurgitation, trace tricuspid regurgitation. No other valvular insufficiency or stenosis. Pulmonary systolic pressure is estimated at 23 mmHg. 5. No evidence of pericardial effusion or left ventricular thrombus. TRANSINT:[id number] Voice Confirmation ID: [id number] DOCUMENT ID: [id number] GARRETT VINES MD at 1202 CC: [id number] DICTATION DATE: 10/07/17 1458 PLIER WORKER: 10/07/17 1510 ADM IN [facility] [address] [place] [address]
[~2017-10-04 21:52] MED LIST changes: +OCUVITE TABLET1 TA1
[2017-10-04 22:57] LABS: BASOPHILS 0.5 % (0-2); EOSINOPHILS 1.3 % (0-7); HEMATOCRIT 34.7 % (36.0-48.0); HEMOGLOBIN 11.2 g/dL (12-16); IMMATURE GRANULOCYTES 1.1 % (0-5); MCH 27.5 pg (26.0-34.0); MCHC 32.3 g/dL (31.0-37.0); MCV 85.3 fL (80.0-100.0); MEAN PLATELET VOLUME 9.7 fL (7.4-10.4); MONOCYTES 11.6 % (2-11); NEUTROPHILS 59.5 % (40-80); PLATELET COUNT 172 10x3/uL (130-400); RBC 4.07 10x6/uL (4.00-5.40); RDW 15.8 % (11.5-14.5); WBC 5.5 10x3/uL (4.8-10.8)
[2017-10-04 23:22] LABS: ALBUMIN 3.4 g/dL (3.4-5.0); ALKALINE PHOSPHATASE 116 U/L (46-116); ALT (SGPT) 14 U/L (10-68); BILIRUBIN - TOTAL 0.41 mg/dL (0.2-1.3); CALC OSMOLALITY 282 mosm/kg (275-300); CALCIUM 9.7 mg/dL (8.5-10.1); CARBON DIOXIDE 26.3 mmol/L (21.0-32.0); CHLORIDE - SERUM 102 mmol/L (98-107); CREATININE - SERUM 1.1 mg/dL (0.6-1.3); GLUCOSE 109 mg/dL (74-106); POTASSIUM - SERUM 3.8 mmol/L (3.5-5.1); PROTEIN - SERUM 7.7 g/dL (6.4-8.2); SODIUM 139 mmol/L (136-145); UREA NITROGEN 23 mg/dL (7-18); eGFR NON AFRICAN AMERICAN 50 mL/min (90-120)
[2017-10-04 23:52] LABS: CREATINE KINASE 39 UL (21-215); MAGNESIUM - SERUM 2.4 mg/dL (1.8-2.4)
[2017-10-04 23:58] LABS: TROPONIN-I < 0.017 ng/mL (0.000-0.060)
[2017-10-05] VITALS: BP 136/79
[2017-10-05 00:27] LABS: APPEARANCE CLEAR (CLEAR); COLOR YELLOW (YELLOW)
[2017-10-05 00:28] LABS: BILIRUBIN NEGATIVE (NEGATIVE); GLUCOSE NEGATIVE (NEGATIVE); KETONE NEGATIVE (NEGATIVE); NITRITE NEGATIVE (NEGATIVE); PROTEIN NEGATIVE (NEGATIVE); SPECIFIC GRAVITY 1.005 (1.005-1.020); UROBILINOGEN NORMAL (NORMAL)
[2017-10-05 00:29] LABS: BACTERIA FEW /hpf (NONE SEEN); EPITHELIAL CELLS 0-5 /hpf (0-5); RED CELLS - URINE 0-5 /hpf (0-5); WHITE CELLS - URINE 0-5 /hpf (0-5)
[2017-10-05 23:06] VITALS: BP 136/79; BMI 27.5
[2017-10-06 04:00] VITALS: BP 123/69
[2017-10-06 06:21] LABS: BASOPHILS 0 % (0-2); EOSINOPHILS 0 % (0-7); HEMATOCRIT 33.6 % (36.0-48.0); HEMOGLOBIN 10.5 g/dL (12-16); IMMATURE GRANULOCYTES 0.6 % (0-5); LYMPHOCYTES 8.8 % (15-50); MCH 27.1 pg (26.0-34.0); MCHC 31.3 g/dL (31.0-37.0); MCV 86.6 fL (80.0-100.0); MEAN PLATELET VOLUME 10.2 fL (7.4-10.4); MONOCYTES 2.1 % (2-11); NEUTROPHILS 88.5 % (40-80); PLATELET COUNT 174 10x3/uL (130-400); RBC 3.88 10x6/uL (4.00-5.40); RDW 15.8 % (11.5-14.5)
[2017-10-06 06:40] LABS: ANION GAP 15.7 mmol/L (8-16); BILIRUBIN - TOTAL 0.3 mg/dL (0.2-1.3); CALCIUM 8.9 mg/dL (8.5-10.1); CARBON DIOXIDE 24.5 mmol/L (21.0-32.0); CREATININE - SERUM 0.9 mg/dL (0.6-1.3); POTASSIUM - SERUM 4.2 mmol/L (3.5-5.1); PROTEIN - SERUM 6.9 g/dL (6.4-8.2)
[2017-10-06 09:23] VITALS: BP 123/63
[2017-10-06 11:30] VITALS: BP 132/59
[2017-10-06 12:59] VITALS: Ht 162.6 cm; Wt 62.3 kg
[2017-10-06 17:47] VITALS: BP 103/50
[2017-10-06 21:06] VITALS: BP 129/58
[2017-10-07 00:58] VITALS: BP 141/65
[2017-10-07 04:00] VITALS: BP 108/55
[2017-10-07 08:34] VITALS: BP 129/80
[2017-10-07 11:47] VITALS: BP 104/71
[2017-10-07 16:15] VITALS: BP 119/74
[2017-10-07 20:26] VITALS: BP 141/51
[2017-10-08 00:34] VITALS: BP 137/61
[2017-10-08 04:00] VITALS: BP 128/59
[2017-10-08 08:38] VITALS: BP 106/49
[2017-10-08 10:43] VITALS: BP 103/53
[2017-10-08 10:49] LABS: BASOPHILS 0 % (0-2); EOSINOPHILS 0.1 % (0-7); HEMATOCRIT 34.6 % (36.0-48.0); HEMOGLOBIN 10.8 g/dL (12-16); IMMATURE GRANULOCYTES 1.1 % (0-5); LYMPHOCYTES 16.5 % (15-50); MCH 27.2 pg (26.0-34.0); MCHC 31.2 g/dL (31.0-37.0); MCV 87.2 fL (80.0-100.0); MEAN PLATELET VOLUME 9.9 fL (7.4-10.4); MONOCYTES 7.9 % (2-11); NEUTROPHILS 74.4 % (40-80); PLATELET COUNT 169 10x3/uL (130-400); RBC 3.97 10x6/uL (4.00-5.40); RDW 16.3 % (11.5-14.5); WBC 9.3 10x3/uL (4.8-10.8)
[2017-10-08 11:04] LABS: ALBUMIN 3.1 g/dL (3.4-5.0); ANION GAP 14.5 mmol/L (8-16); BILIRUBIN - TOTAL 0.26 mg/dL (0.2-1.3); CREATININE - SERUM 0.8 mg/dL (0.6-1.3); POTASSIUM - SERUM 3.5 mmol/L (3.5-5.1); PROTEIN - SERUM 6.8 g/dL (6.4-8.2)
[2017-10-08 15:34] VITALS: BP 111/68
[2017-10-08 20:30] VITALS: BP 140/68
[2017-10-09 00:30] VITALS: BP 128/74
[2017-10-09 04:30] VITALS: BP 111/60
[2017-10-09 08:22] VITALS: BP 122/68
[2017-10-09 11:55] VITALS: BP 118/68
[2017-10-09 16:18] VITALS: BP 100/47
[2017-10-09 21:53] VITALS: BP 104/45
[2017-10-10 02:40] VITALS: BP 137/71
[2017-10-10 04:59] LABS: BASOPHILS 0 % (0-2); EOSINOPHILS 0.1 % (0-7); HEMATOCRIT 32.5 % (36.0-48.0); HEMOGLOBIN 10.2 g/dL (12-16); IMMATURE GRANULOCYTES 1.4 % (0-5); LYMPHOCYTES 10.6 % (15-50); MCH 27.2 pg (26.0-34.0); MCHC 31.4 g/dL (31.0-37.0); MCV 86.7 fL (80.0-100.0); MEAN PLATELET VOLUME 10.5 fL (7.4-10.4); MONOCYTES 3.3 % (2-11); NEUTROPHILS 84.6 % (40-80); PLATELET COUNT 155 10x3/uL (130-400); RBC 3.75 10x6/uL (4.00-5.40); RDW 16.3 % (11.5-14.5)
[2017-10-10 05:07] LABS: WBC 6.9 10x3/uL (4.8-10.8)
[2017-10-10 05:13] LABS: ANION GAP 14.8 mmol/L (8-16); CARBON DIOXIDE 26.8 mmol/L (21.0-32.0); CREATININE - SERUM 0.8 mg/dL (0.6-1.3); MAGNESIUM - SERUM 2.3 mg/dL (1.8-2.4); PHOSPHOROUS 3.6 mg/dL (2.5-4.9)
[2017-10-10 05:15] LABS: POTASSIUM - SERUM 4.6 mmol/L (3.5-5.1)
[2017-10-10] MEDS ORDERED: TESSALON PERLE100 MG PO (08:26)
[2017-10-10] MEDS ORDERED: MUCINEX DM ER1 EAC1 PO (08:26)
[2017-10-10] MEDS ORDERED: IPRAT-ALBUT 0.5-3 ML UPD (08:27)
[2017-10-10] MEDS ORDERED: PULMICORT0.5 MG/21 UPD (08:27)
[2017-10-10 10:17] VITALS: BP 119/69
[2017-10-10 12:13] LABS: ANA REFLEX - DIRECT Negative (Negative)
[2017-10-10 16:12] LABS: ANCA - ANTIMYELOPEROXIDASE <9.0 U/mL (0.0-9.0); ANCA - ANTIPROTEINASE 3 <3.5 U/mL (0.0-3.5); ANCA - ATYPICAL <1:20 titer (Neg:<1:20); ANCA - CYTOPLASMIC <1:20 titer (Neg:<1:20); ANCA - PERINUCLEAR <1:20 titer (Neg:<1:20)
== END 2017-10-10 13:45 | DRG 189 ==
LOC: D.ER 21:52 → D.M2 10-05 02:07 → D.EDHOLD 10-05 02:07 → D.M2 10-05 18:42
PROVIDERS: Family Medicine; Internal Medicine Pulmonary Disease
DX: J96.21 Acute and chronic respiratory failure with hypoxia (principal); J44.1 Chronic obstructive pulmonary disease with (acute) exacerbation; J98.11 Atelectasis; E11.40 Type 2 diabetes mellitus with diabetic neuropathy, unspecified; I48.91 Unspecified atrial fibrillation; I25.10 Atherosclerotic heart disease of native coronary artery without angina pectoris; K21.9 Gastro-esophageal reflux disease without esophagitis; E55.9 Vitamin D deficiency, unspecified; D64.9 Anemia, unspecified; R91.1 Solitary pulmonary nodule; Z95.5 Presence of coronary angioplasty implant and graft; Z72.0 Tobacco use

== ENCOUNTER 2018-04-15 11:52 | Inpatient (IN) | payer MEDICARE, BC ==
[~2018-04-15] VITALS: Ht 162.6 cm; Wt 68.0 kg
--- NOTE | ~2018-04-15 | CN ---
PATIENT NAME:LIOR SIDDIQUI MEDICAL RECORD: [id number] : 35 LOCATION:D.MS [facility]2229 ADMIT DATE: 04/17/18 ACCOUNT: [id number] CONSULTING PHYSICIAN: GARRETT VINES MD REFERRING PHYSICIAN: BLACK HERNÁNDEZ DO DATE OF CONSULTATION: 04/19/2018 DIAGNOSES: 1. Musculoskeletal chest pain. 2. Status post fall with multiple contusions. HISTORY OF PRESENT ILLNESS: Ms. Siddiqui presents with multiple contusions, multiple falls. She did complain of chest pain, but her chest pain is definitely musculoskeletal, only with palpation and pressing on this area of her left chest. Her troponin is normal. EKG is with no significant changes. PHYSICAL EXAMINATION: GENERAL APPEARANCE: Well-nourished, well-developed, appears stated age. Level of distress, comfortable. PSYCHIATRIC: Mental status, alert, normal affect. Orientation, oriented to time, place and person. EYES: Lids and conjunctiva, noninjected. No discharge, no pallor. ENT: Lips, teeth, gums, normal dentition. Oropharynx, no cyanosis, no pallor. NECK: Carotid arteries, bilateral normal upstroke, no bruits, no thrills. JUGULAR VEINS: No jugular venous pressure or distention. CERVICAL LYMPH NODES: Nontender, nonenlarged. THYROID: Not enlarged. Nontender. No nodules. LUNGS: Respiratory effort, unlabored. CHEST: Normal curvature. No thoracic deformity. No chest wall tenderness. Percussion, resonant. Auscultation, clear. No wheezes, no rales, no rhonchi. CARDIOVASCULAR: Precordial exam, nondisplaced. No heaves or pericardial thrills. Rate and rhythm, regular. Heart sounds, normal S1, normal S2. No S3, no gallop, no rub. Systolic murmur, not heard. Diastolic murmur, not heard. EXTREMITIES: No cyanosis, no edema. Peripheral pulses, full and equal in all extremities, except as noted. No bruits appreciated. ABDOMEN: Soft, nondistended. Normal aorta. No bruit. Nontender. No masses. Liver, nontender, no hepatomegaly. Spleen, nontender, no splenomegaly. MUSCULOSKELETAL: No joint tenderness. No joint swelling. No erythema. NEUROLOGICAL: Normal gait, normal strength, normal tone. SKIN: Warm and dry. OVERALL IMPRESSION: Chest pain, it is musculoskeletal. No other cardiac workup or treatment is necessary. TRANSINT:[id number] Voice Confirmation ID: [id number] DOCUMENT ID: [id number] GARRETT VINES MD at 1439 CC: [id number] DICTATION DATE: 04/19/18 1221 PRODUCTION TEAM MEMBER: 04/19/18 1244 ADM IN [facility] [id number] [place] [address]
--- NOTE | ~2018-04-15 | EC ---
PATIENT:LIOR SHAH DATE OF SERVICE: 04/15/18 SEX: F MEDICAL RECORD: [id number] DATE OF : 35 LOCATION:D.MS [facility]222 AGE OF PATIENT: 82 ADMISSION DATE: 04/17/18 REFERRING PHYSICIAN: INTERPRETING PHYSICIAN: GARRETT LANDON MD ECHOCARDIOGRAM REPORT ECHO CHARGES 4 ECHO COMPLETE Date: 04/16/18 CLINICAL DIAGNOSIS: SYNCOPE, MURMUR ECHOCARDIOGRAPHIC MEASUREMENTS (adult normal given) AC root (d.<3.7cm) 1.9 cm LV Septum d (<1.2 cm> 0.9 cm Valve Excursion 1.0 cm LV Septum (systole) 1.0 cm Left Atria (s.<4.0cm> 2.8 cm LVPW d(<1.2cm) 0.9 cm RV (d.<2.3cm) 2.4 cm LVPW (sytole) 1.1 cm LV diastole(<5.6CM) 3.6 cm MV E-F(>70mm/sec) cm LV systole 3.0 cm LVOT Diameter 1.6 cm MV exc.(>10mm) cm Est.ejection fraction (50-75%) % DOPPLER: LVIT cm/sec A 102 cm/sec E 62 cm/sec LA cm/sec RVSP 14.9 mmHg LVOT 90 cm/sec AOP1/2T m/s Asc. Ao 101 cm/sec RVOT 52 cm/sec RA cm/sec PA 91 cm/sec AV Gradient Peak 4.1 mmHg AV Mean 2.3 mmHg AV Area 1.9 cm MV Gradient Peak 4.6 mmHg MV Mean 2.3 mmHg MV Area cm COMMENTS: Jig And Fixture Builder: Jayant AGUAYO Customer Service Associate: [address] Dr. Landon TAPE# PACS Pericardial Effusion N DATE OF SERVICE: 04/16/2018 PROCEDURE: Echocardiogram. FINDINGS: 1. Left ventricular chamber size is within normal limits. Left ventricular systolic function is normal. Overall ejection fraction estimated at 50%. 2. Left atrium, right atrium, and right ventricle chamber size is within normal limits. 3. Valvular structures have normal structure and motion. ECHOCARDIOGRAM REPORT [id number] LIOR SHAH 4. Doppler interrogation reveals no significant valvular insufficiency or stenosis. Pulmonary systolic pressure is estimated 15 mmHg. 5. No evidence of pericardial effusion or left ventricular thrombus. TRANSINT:[id number] Voice Confirmation ID: [id number] DOCUMENT ID: [id number] GARRETT LANDON MD at 1823 CC: [id number] DICTATION DATE: 04/16/18 1232 PROPERTY MASTER: 04/16/18 1245 ADM IN [facility] [address] [place] [id number]
--- NOTE | ~2018-04-15 | HP ---
PATIENT: LIOR SHAH MEDICAL RECORD: [id number] ACCOUNT: [id number] LOCATION:D.MS [id number] : 35 ADMISSION DATE: 04/15/18 PCP: BLACK HERNÁNDEZ DO HISTORY AND PHYSICAL EXAMINATION DATE OF ADMISSION: 04/15/2018. CHIEF COMPLAINT: Status post fall. HISTORY OF PRESENT ILLNESS: The patient is an 82-year-old female who states that she was in her restroom when she fell at a local assisted living facility. She fell in the bathroom and states she did have loss of consciousness. She is complaining of pain from head to toe. The patient was evaluated in the Emergency Room, felt as if she did need admission. PAST MEDICAL HISTORY: Significant that she has had history of having Parkinson disease. She has also had left carotid endarterectomy. She has had arteriosclerotic heart disease, hyperlipidemia, diabetes, hysterectomy, gastroesophageal reflux. FAMILY HISTORY: Mother and father both of heart disease in her 60s. MEDICATIONS: Include carbidopa 25/100 one p.o. t.i.d., Flexeril 10 mg p.o. t.i.d. p.r.n. muscle spasm, Ocuvite gluten capsules 1 daily, omeprazole 40 mg twice a day, oxybutynin chloride 5 mg 2 tablets once a day, Zoloft 100 mg once a day, tramadol 37.5 mg, acetaminophen 325 p.r.n. ALLERGIES: CODEINE, NONSTEROIDAL ANTI-INFLAMMATORIES. SOCIAL HISTORY: The patient was born in [place], grew up in [place], has lived in [place] since December. She is a former smoker, was a 2-pack per day smoker. She denies any ethanol use or abuse. She is a mother of 4. REVIEW OF SYSTEMS: CONSTITUTIONAL: The patient does report having headache, also chest pain. She has had back pain, leg pain, arm pain. PHYSICAL EXAMINATION: VITAL SIGNS: The patient initially temperature was 97.2, pulse 64, respirations are 18, blood pressure 167/73, O2 sat was 96. GENERAL: She is alert. She is oriented times 3. She has superficial abrasion over the left frontal region as well as the left cheek Her cranial nerves II-XII are intact. HEENT: Unremarkable. NECK: Supple. There are no carotid bruits that can be appreciated. HEART: Slightly bradycardic. She does have a II-III/ systolic ejection murmur. LUNGS: Clear to auscultation. ABDOMEN: Soft, bowel sounds are positive. No organomegaly. GENITAL AND RECTAL: Deferred. EXTREMITIES: The patient does have a flap laceration, which has been repaired over the dorsum of the left second finger. She also has flap laceration over the left upper forearm laterally. She has skin abrasion over the left knee as well. She has multiple contusions. She has no pretibial edema. HISTORY AND PHYSICAL [id number] LIOR SHAH LABORATORY DATA: Her white count was 5.2, hemoglobin 11.5, hematocrit was 36.3, and her platelets were 129. Potassium was 3.7, sodium 142, chloride 106, carbon dioxide 28, BUN 17, creatinine 0.9, blood sugar is 99. The patient's cardiac enzymes were unremarkable. Urinalysis is unremarkable. The patient had a left hand x-ray. The left hand x-ray revealed no definite acute osseous abnormalities. Chest x-ray revealed no cardiomegaly, no active infiltrates present. Thoracic spine CT: No definite osseous abnormalities could be appreciated, although there were degenerative changes throughout. Shoulder x-ray reveals no acute osseous abnormalities. Lumbar C spine: No definite acute osseous abnormalities. CT of the head revealed no acute intracranial processes, mucosal thickening, or air-fluid level in the sphenoid sinus. Facial bones revealed no acute abnormalities. ASSESSMENT: Status post fall with multiple contusions, skin abrasions, skin lacerations, syncope, history of Parkinson disease, gastroesophageal reflux, history of diabetes mellitus, hyperlipidemia. PLAN: The patient is admitted. All wounds will be cleaned. Skin reapproximated. Steri-Strips will be applied. We will get a carotid Doppler as well as keep the patient on telemetry, get an echocardiogram to evaluate for murmur. Physical therapy for ambulation. TRANSINT:[id number] Voice Confirmation ID: [id number] DOCUMENT ID: [id number] BRUNO ALEJANDRE MD CC: [id number] DICTATION DATE: 04/16/18 1016 INDUSTRIAL TECHNOLOGY TEACHER: 04/16/18 1137 ADM IN [facility] [address] [place] [address]
[~2018-04-15 11:52] MED LIST changes: +IPRAT-ALBUT 0.5-3 ML UPD; +MUCINEX DM ER1 EAC1 PO; +PULMICORT0.5 MG/21 UPD; +TESSALON PERLE100 MG PO
[2018-04-15 13:57] LABS: APPEARANCE CLEAR (CLEAR); BILIRUBIN NEGATIVE (NEGATIVE); COLOR YELLOW (YELLOW); GLUCOSE NEGATIVE (NEGATIVE); KETONE NEGATIVE (NEGATIVE); NITRITE NEGATIVE (NEGATIVE); PROTEIN NEGATIVE (NEGATIVE); SPECIFIC GRAVITY 1.005 (1.005-1.020); UROBILINOGEN NORMAL (NORMAL)
[2018-04-15 14:15] LABS: BASOPHILS 0.6 % (0-2); EOSINOPHILS 1.4 % (0-7); HEMATOCRIT 36.3 % (36.0-48.0); HEMOGLOBIN 11.5 g/dL (12-16); IMMATURE GRANULOCYTES 0.2 % (0-5); LYMPHOCYTES 20.5 % (15-50); MCH 26.3 pg (26.0-34.0); MCHC 31.7 g/dL (31.0-37.0); MCV 83.1 fL (80.0-100.0); MEAN PLATELET VOLUME 9.8 fL (7.4-10.4); MONOCYTES 7.4 % (2-11); NEUTROPHILS 69.9 % (40-80); PLATELET COUNT 129 10x3/uL (130-400); RBC 4.37 10x6/uL (4.00-5.40); RDW 16.3 % (11.5-14.5); WBC 5.2 10x3/uL (4.8-10.8)
[2018-04-15 14:29] LABS: ALBUMIN 3.7 g/dL (3.4-5.0); ALKALINE PHOSPHATASE 134 U/L (46-116); ALT (SGPT) 23 U/L (10-68); BILIRUBIN - TOTAL 0.43 mg/dL (0.2-1.3); CALC OSMOLALITY 290 mosm/kg (275-300); CALCIUM 9.5 mg/dL (8.5-10.1); CARBON DIOXIDE 30.7 mmol/L (21.0-32.0); CHLORIDE - SERUM 105 mmol/L (98-107); GLUCOSE 112 mg/dL (74-106); POTASSIUM - SERUM 3.9 mmol/L (3.5-5.1); PROTEIN - SERUM 7.6 g/dL (6.4-8.2); SODIUM 145 mmol/L (136-145); UREA NITROGEN 15 mg/dL (7-18); eGFR NON AFRICAN AMERICAN 56 mL/min (90-120)
[2018-04-15 14:42] LABS: INR 1.14 (0.85-1.17); PROTIME 14.2 SECONDS (11.6-15.0)
[2018-04-15 18:34] VITALS: BP 150/76
[2018-04-15 20:04] LABS: CKMB 5.9 U/L (0.0-3.6); CREATINE KINASE 159 UL (21-215)
[2018-04-15 20:19] LABS: TROPONIN-I < 0.017 ng/mL (0.000-0.060)
[2018-04-15 22:32] VITALS: BP 160/76; BMI 25.8
[2018-04-15 23:45] VITALS: BP 160/76
[2018-04-16 02:01] LABS: CKMB 3.5 U/L (0.0-3.6); CREATINE KINASE 127 UL (21-215)
[2018-04-16 02:02] LABS: TROPONIN-I < 0.017 ng/mL (0.000-0.060)
[2018-04-16 04:00] VITALS: BP 125/59
[2018-04-16 06:20] LABS: BASOPHILS 0.7 % (0-2); EOSINOPHILS 1.6 % (0-7); HEMATOCRIT 32.5 % (36.0-48.0); HEMOGLOBIN 10.1 g/dL (12-16); IMMATURE GRANULOCYTES 0.2 % (0-5); LYMPHOCYTES 29.1 % (15-50); MCH 25.8 pg (26.0-34.0); MCHC 31.1 g/dL (31.0-37.0); MCV 82.9 fL (80.0-100.0); MEAN PLATELET VOLUME 10.5 fL (7.4-10.4); MONOCYTES 11.1 % (2-11); NEUTROPHILS 57.3 % (40-80); PLATELET COUNT 121 10x3/uL (130-400); RBC 3.92 10x6/uL (4.00-5.40); RDW 16.5 % (11.5-14.5); WBC 4.5 10x3/uL (4.8-10.8)
[2018-04-16 07:08] LABS: ALBUMIN 3.1 g/dL (3.4-5.0); ANION GAP 11.6 mmol/L (8-16); BILIRUBIN - TOTAL 0.6 mg/dL (0.2-1.3); CALCIUM 8.7 mg/dL (8.5-10.1); CARBON DIOXIDE 28.1 mmol/L (21.0-32.0); CREATININE - SERUM 0.9 mg/dL (0.6-1.3); POTASSIUM - SERUM 3.7 mmol/L (3.5-5.1); PROTEIN - SERUM 6.6 g/dL (6.4-8.2)
[2018-04-16 08:13] LABS: CKMB 2.9 U/L (0.0-3.6); CREATINE KINASE 114 UL (21-215)
[2018-04-16 08:14] LABS: TROPONIN-I < 0.017 ng/mL (0.000-0.060)
[2018-04-16 09:10] VITALS: BP 156/63
[2018-04-16 16:26] VITALS: BP 175/74
[2018-04-16 20:23] VITALS: BP 143/65
[2018-04-17 04:00] VITALS: BP 115/50
[2018-04-17 04:10] LABS: BASOPHILS 0.4 % (0-2); EOSINOPHILS 1.6 % (0-7); HEMATOCRIT 30.6 % (36.0-48.0); HEMOGLOBIN 9.5 g/dL (12-16); LYMPHOCYTES 29.5 % (15-50); MCH 25.9 pg (26.0-34.0); MCV 83.4 fL (80.0-100.0); MEAN PLATELET VOLUME 10.3 fL (7.4-10.4); MONOCYTES 9.7 % (2-11); NEUTROPHILS 58.8 % (40-80); PLATELET COUNT 115 10x3/uL (130-400); RBC 3.67 10x6/uL (4.00-5.40); RDW 16.6 % (11.5-14.5); WBC 5.1 10x3/uL (4.8-10.8)
[2018-04-17 04:21] LABS: ANION GAP 11.4 mmol/L (8-16); CALCIUM 8.7 mg/dL (8.5-10.1); CARBON DIOXIDE 26.1 mmol/L (21.0-32.0); CREATININE - SERUM 0.8 mg/dL (0.6-1.3); POTASSIUM - SERUM 3.5 mmol/L (3.5-5.1)
[2018-04-17 08:08] VITALS: BP 130/63
[2018-04-17 12:54] VITALS: Ht 162.6 cm; Wt 68.0 kg
[2018-04-17 16:41] VITALS: BP 146/71
[2018-04-17 20:00] VITALS: BP 122/61
[2018-04-18 04:52] LABS: BASOPHILS 0.2 % (0-2); EOSINOPHILS 1.4 % (0-7); HEMOGLOBIN 9.5 g/dL (12-16); IMMATURE GRANULOCYTES 0.2 % (0-5); MCH 26.2 pg (26.0-34.0); MCHC 31.7 g/dL (31.0-37.0); MCV 82.9 fL (80.0-100.0); MEAN PLATELET VOLUME 10.3 fL (7.4-10.4); MONOCYTES 10.5 % (2-11); NEUTROPHILS 59.7 % (40-80); PLATELET COUNT 116 10x3/uL (130-400); RBC 3.62 10x6/uL (4.00-5.40); RDW 16.5 % (11.5-14.5)
[2018-04-18 05:09] LABS: ALBUMIN 2.8 g/dL (3.4-5.0); ANION GAP 11.3 mmol/L (8-16); BILIRUBIN - TOTAL 0.58 mg/dL (0.2-1.3); CALCIUM 8.8 mg/dL (8.5-10.1); CARBON DIOXIDE 28.4 mmol/L (21.0-32.0); CREATININE - SERUM 0.9 mg/dL (0.6-1.3); POTASSIUM - SERUM 3.7 mmol/L (3.5-5.1)
[2018-04-18 05:47] VITALS: BP 114/51
[2018-04-18 09:13] VITALS: BP 139/55
[2018-04-18 12:28] VITALS: BP 109/48
[2018-04-18 16:06] VITALS: BP 175/92
[2018-04-18 19:27] VITALS: BP 146/67
[2018-04-19 04:00] VITALS: BP 130/81
[2018-04-19 09:13] VITALS: BP 153/66
[2018-04-19 10:43] LABS: CKMB 3.9 U/L (0.0-3.6); CREATINE KINASE 156 UL (21-215); TROPONIN-I < 0.017 ng/mL (0.000-0.060)
[2018-04-19 11:40] VITALS: BP 97/73
[2018-04-19 16:33] LABS: CKMB 5.6 U/L (0.0-3.6); CREATINE KINASE 159 UL (21-215)
[2018-04-19 16:34] LABS: TROPONIN-I < 0.017 ng/mL (0.000-0.060)
[2018-04-19 16:45] VITALS: BP 115/45
[2018-04-19 20:00] VITALS: BP 147/67
[2018-04-19 22:39] LABS: CKMB 5.3 U/L (0.0-3.6); CREATINE KINASE 172 UL (21-215)
[2018-04-19 22:42] LABS: TROPONIN-I < 0.017 ng/mL (0.000-0.060)
[2018-04-20 04:00] VITALS: BP 135/64
[2018-04-20 09:20] VITALS: BP 138/61
== END 2018-04-20 21:21 | DRG 914 ==
LOC: D.ER 11:52 → D.EDHOLD 19:49 → D.MS 19:49 → OBSVTIME 19:49 → D.MS 20:28
PROVIDERS: Family Medicine
DX: S09.90XA Unspecified injury of head, initial encounter (principal); S39.012A Strain of muscle, fascia and tendon of lower back, initial encounter; W01.0XXA Fall on same level from slipping, tripping and stumbling without subsequent striking against object, initial encounter; R55 Syncope and collapse; R07.89 Other chest pain; S50.12XA Contusion of left forearm, initial encounter; S61.211A Laceration without foreign body of left index finger without damage to nail, initial encounter; S51.812A Laceration without foreign body of left forearm, initial encounter; S00.83XA Contusion of other part of head, initial encounter; G20 Parkinson's disease; R53.1 Weakness

== ENCOUNTER 2018-05-15 10:15 | Inpatient (IN) | payer MEDICARE, BC ==
[~2018-05-15] VITALS: Ht 162.6 cm; Wt 54.4 kg
--- NOTE | ~2018-05-15 | MORECARE ---
CASE MANAGEMENT DISCHARGE SUMMARY PATIENT: LIOR SHAH UNIT: [id number] ADM DATE: 05/16/18 AGE: 82 : 35 SEX: F ROOM/BED: D.2229 AUTHOR: DONI GALLAGHER PHYSICIAN: REFERRING PHYSICIAN: BLACK HERNÁNDEZ DO DATE OF SERVICE: 05/16/18 Discharge Plan Patient Name: LIOR SHAH [facility] [facility] 1935 Planned Disposition: [facility] Facility Anticipated Discharge Date: Discharge Date: Expected LOS: Initial Reviewer: [email or web address] Initial Review Date: 05/15/2018 Generated: 05/16/18 12:47 pm DCPIA - Discharge Planning Initial Assessment Updated by [email or web address]: Cathleen Heath on 05/16/18 11:43 am * Is the patient Alert and Oriented? No * How many steps to enter\exit or inside your home? 0/0 * PCP Dr. Hernández * Pharmacy [facility] * Preadmission Environment Assisted Living * Facility Name [facility] * ADLs Partial Dependent * Partial ADLs (Assistance needed) Ambulation Bathing Medication Management Transfers * Equipment Bedside Commode Other Rolling Walker Shower Chair * Other Equipment Transfer chair * List name and contact numbers for known caregivers / representatives who currently or will assist patient after discharge: Jasbir Gautam DTR and [facility] - [phone] [facility] [phone] * Verbal permission to speak to the caregivers and representatives has been obtained from the patient. N/A * Community resources currently utilized Assisted Living * Please name any agencies selected above. [facility] * Additional services required to return to the preadmission environment? Yes * Can the patient safely return to the preadmission environment? No * Has this patient been hospitalized within the prior 30 days at any hospital? Yes Last DP export: 05/16/18 10:35 Patient Name: LIOR SHAH Page [id number] at 1147 All edits/amendments must be made on the electronic document DICTATION DATE: 05/16/18 1147 CUSTOMER SUPPORT SPECIALIST: INOCENCIO 05/16/18 1147 RPT#: [id number] DC DATE: STATUS: ADM IN [facility] [address] [place] [address] END OF REPORT
--- NOTE | ~2018-05-15 | MORECARE ---
CASE MANAGEMENT DISCHARGE SUMMARY PATIENT: LIOR SHAH UNIT: [id number] ADM DATE: 05/16/18 AGE: 82 : 35 SEX: F ROOM/BED: D.2229 AUTHOR: ELLIOTTDOC PHYSICIAN: REFERRING PHYSICIAN: BLACK HERNÁNDEZ DO DATE OF SERVICE: 05/19/18 Discharge Plan Patient Name: LIOR SHAH Facility: [facility]:[place] : 1935 Planned Disposition: Jail Facility Anticipated Discharge Date: Discharge Date: 05/17/2018 Expected LOS: 0 Initial Reviewer: [email or web address] Initial Review Date: 05/15/2018 Generated: 05/19/18 10:28 am Comments DCP- Discharge Planning Updated by [email or web address]: Cathleen Heath on 05/17/18 10:[address] Patient's daughter is here. She is being [facility] They are picking her up at 2:30. Primary nurse and clinical education coordinator informed. CM will continue to follow and assist with discharge planning/needs. DCP- Discharge Planning Updated by [email or web address]: Cathleen Heath on 05/17/18 9:[address] Received a call from [facility] that they can accept patient to a skilled (Medicare) bed. I called patient's daughter and she is agreeable to plan, she would like a private room if possible but states is still agreeable if a private room is not available. I called Dr. Hernández's office and notified his nurse. CM will continue to follow and assist with discharge planning/needs. DCP- Discharge Planning Updated by [email or web address]: Cathleen Heath on 05/17/18 8:[address] I SPOKE WITH SOURAV AT [facility] AND INFORMED HER THAT THE PATIENT HAD 3 MIDNIGHTS AND WAS DISCHARGED 04/20 AND WOULD BE READY FOR DISCHARGE TODAY IF ACCEPTED. DC SUMMARY FROM 04/20 AND THERAPY NOTES FAXED TO [facility]. CM WILL CONTINUE TO FOLLOW AND ASSIST WITH DISCHARGE PLANNING/NEEDS. DCP- Discharge Planning Updated by [email or web address]: Cathleen Heath on 05/16/18 11:[address] Spoke with M[facility] at [facility] and clinical faxed for SNF. CM will continue to follow and assist with discharge planning/needs. DCP- Discharge Planning Updated by [id number]: Cathleen Lunsfordcody on 05/16/18 10:[address] Patient Name: LIOR SHAH Admission Status: ER Accout number: [id number] Admission Date: 05-16-2018 : 1935 Admission Diagnosis: Attending: BLACK HERNÁNDEZ Current LOS: 1 Anticipated DC Date: Planned Disposition: Jail Facility Primary Insurance: MEDICARE A & B Discharge Planning Comments: CM met with patient, she is asleep. I called her daughter, AUBRIE, to discuss discharge planning. She states her mother lives at [facility] living with her . States she will not be able to return. Jasbir (daughter) states she is [facility], but would like ther mother to go to [facility] to SNF prior to going to an assisted living. I spoke with Dr. Hernández's nurse, nolan Rosado. CM will continue to follow and assist with discharge planning/needs. Running Specialist: Cathleen Ivana DCPIA - Discharge Planning Initial Assessment Updated by [email or web address]: Cathleen Ivana on 05/16/18 11:43 am * Is the patient Alert and Oriented? No * How many steps to enter\exit or inside your home? 0/0 * PCP Dr. Hernández * Pharmacy [facility] * Preadmission Environment Assisted Living * Facility Name [facility] * ADLs Partial Dependent * Partial ADLs (Assistance needed) Ambulation Bathing Medication Management Transfers * Equipment Bedside Commode Other Rolling Walker Shower Chair * Other Equipment Transfer chair * List name and contact numbers for known caregivers / representatives who currently or will assist patient after discharge: Jasbir Jerome - DTDrake and AUBRIE [facility] - [phone] [facility] [phone] * Verbal permission to speak to the caregivers and representatives has been obtained from the patient. N/A * Community resources currently utilized Assisted Living * Please name any agencies selected above. [facility] * Additional services required to return to the preadmission environment? Yes * Can the patient safely return to the preadmission environment? No * Has this patient been hospitalized within the prior 30 days at any hospital? Yes Last DP export: 05/17/18 10:40 Patient Name: LIOR SHAH Page [id number] at 0928 All edits/amendments must be made on the electronic document DICTATION DATE: 05/19/18927 DIVERSIFIED CROPS SUPERVISOR: INOCENCIO 05/19/18927 RPT#: [id number] DC DATE:05/17/18 STATUS: DIS IN [facility] [address] [place] [address] END OF REPORT
--- NOTE | ~2018-05-15 | MORECARE ---
CASE MANAGEMENT DISCHARGE SUMMARY PATIENT: LIOR SHAH UNIT: [id number] ADM DATE: 05/16/18 AGE: 82 : 35 SEX: F ROOM/BED: D.2229 AUTHOR: ELLIOTT,DOC PHYSICIAN: REFERRING PHYSICIAN: BLACK HERNÁNDEZ DO DATE OF SERVICE: 05/17/18 Discharge Plan Patient Name: LIOR SHAH Facility[facility] : 1935 Planned Disposition: Prison Facility Anticipated Discharge Date: Discharge Date: Expected LOS: Initial Reviewer: [email or web address] Initial Review Date: 05/15/2018 Generated: 05/17/18 12:40 pm Comments DCP- Discharge Planning Updated by [email or web address]: Cathleen Heath on 05/17/18 10:[address] Patient's daughter is here. She is being discharged to assisted bed at [facility]. They are picking her up at 2:30. Primary nurse and preparation center coordinator informed. CM will continue to follow and assist with discharge planning/needs. DCP- Discharge Planning Updated by [email or web address]: Cathleen Heath on 05/17/18 9:[address] Received a call from [facility] that they can accept patient to a skilled (Medicare) bed. I called patient's daughter and she is agreeable to plan, she would like a private room if possible but states is still agreeable if a private room is not available. I called Dr. Hernández's office and notified his nurse. CM will continue to follow and assist with discharge planning/needs. DCP- Discharge Planning Updated by [email or web address]: Cathleen Heath on 05/17/18 8:[address] I SPOKE WITH SOURAV AT [facility] AND INFORMED HER THAT THE PATIENT HAD 3 MIDNIGHTS AND WAS DISCHARGED 04/20 AND WOULD BE READY FOR DISCHARGE TODAY IF ACCEPTED. DC SUMMARY FROM 04/20 AND THERAPY NOTES FAXED TO [facility]. CM WILL CONTINUE TO FOLLOW AND ASSIST WITH DISCHARGE PLANNING/NEEDS. DCP- Discharge Planning Updated by [id number]: Cathleen Heath on 05/16/18 11:[address] Sp[facility] with [facility] and clinical faxed for SNF. CM will continue to follow and assist with discharge planning/needs. DCP- Discharge Planning Updated by [email or web address]: Cathleen Lunsfordcody on 05/16/18 10:[address] Patient Name: LIOR SHAH Admission Status: ER Accout number: [id number] Admission Date: 05-16-2018 : 1935 Admission Diagnosis: Attending: BLACK HERNÁNDEZ Current LOS: 1 Anticipated DC Date: Planned Disposition: Prison Facility Primary Insurance: MEDICARE A & B Discharge Planning Comments: CM met with patient, she is asleep. I called her daughter, AUBRIE, to discuss discharge planning. She states her mother lives at [facility] living with her . States she will not be able to return. Jasbir (daughter) states she is [facility], but would like ther mother to go to [facility] to SNF prior to going to an assisted living. I spoke with Dr. Hernández's nurse, Ashlee, nolan carcamo. CM will continue to follow and assist with discharge planning/needs. Director Patient: Cathleen Lunsfordcody DCPIA - Discharge Planning Initial Assessment Updated by [id number]: Cathleen Lunsfordcody on 05/16/18 11:43 am * Is the patient Alert and Oriented? No * How many steps to enter\exit or inside your home? 0/0 * PCP Dr. Hernández * Pharmacy [facility] * Preadmission Environment Assisted Living * Facility Name [facility] * ADLs Partial Dependent * Partial ADLs (Assistance needed) Ambulation Bathing Medication Management Transfers * Equipment Bedside Commode Other Rolling Walker Shower Chair * Other Equipment Transfer chair * List name and contact numbers for known caregivers / representatives who currently or will assist patient after discharge: Jasbir Jerome - DTDrake and AUBRIE [facility] - [phone] [facility] [phone] * Verbal permission to speak to the caregivers and representatives has been obtained from the patient. N/A * Community resources currently utilized Assisted Living * Please name any agencies selected above. [facility] * Additional services required to return to the preadmission environment? Yes * Can the patient safely return to the preadmission environment? No * Has this patient been hospitalized within the prior 30 days at any hospital? Yes Last DP export: 05/17/18 9:30 Patient Name: LIOR SHAH Page [id number] at 1140 All edits/amendments must be made on the electronic document DICTATION DATE: 05/17/18 114 THREAD CUTTER: INOCENCIO 05/17/18 1140 RPT#: [id number] DC DATE: STATUS: ADM IN [facility] [address] [place] [address] END OF REPORT
--- NOTE | ~2018-05-15 | MORECARE ---
CASE MANAGEMENT DISCHARGE SUMMARY PATIENT: LIOR SHAH UNIT: [id number] ADM DATE: 05/16/18 AGE: 82 : 35 SEX: F ROOM/BED: D.2229 AUTHOR: DONI GALLAGHER PHYSICIAN: REFERRING PHYSICIAN: BLACK HERNÁNDEZ DO DATE OF SERVICE: 05/16/18 Discharge Plan Patient Name: LIOR SHAH Facility: [facility]:[place] : 1935 Planned Disposition: Jail Facility Anticipated Discharge Date: Discharge Date: Expected LOS: Initial Reviewer: [email or web address] Initial Review Date: 05/15/2018 Generated: 05/16/18 1:23 pm Comments DCP- Discharge Planning Updated by [email or web address]: Cathleen Heath on 05/16/18 11:[address] Spoke with Mimi at [facility] and clinical faxed for SNF. CM will continue to follow and assist with discharge planning/needs. DCP- Discharge Planning Updated by [email or web address]: Cathleen Heath on 05/16/18 10:[address] Patient Name: LIOR SHAH Admission Status: ER Accout number: [id number] Admission Date: 05-16-2018 : 1935 Admission Diagnosis: Attending: BLACK HERNÁNDEZ Current LOS: 1 Anticipated DC Date: Planned Disposition: Jail Facility Primary Insurance: MEDICARE A & B Discharge Planning Comments: CM met with patient, she is asleep. I called her daughter, AUBRIE, to discuss discharge planning. She states her mother lives at [facility] assisted living with her . States she will not be able to return. Jasbir (daughter) states she is [facility], but would like ther mother to go to [facility] to SNF prior to going to an assisted living. I spoke with Dr. Hernández's nurse, nolan Rosado. CM will continue to follow and assist with discharge planning/needs. Nozzle Worker: Cathleen Heath DCPIA - Discharge Planning Initial Assessment Updated by [email or web address]: Cathleen Heath on 05/16/18 11:43 am * Is the patient Alert and Oriented? No * How many steps to enter\exit or inside your home? 0/0 * PCP Dr. Hernández * Pharmacy [facility] * Preadmission Environment Assisted Living * Facility Name [facility] * ADLs Partial Dependent * Partial ADLs (Assistance needed) Ambulation Bathing Medication Management Transfers * Equipment Bedside Commode Other Rolling Walker Shower Chair * Other Equipment Transfer chair * List name and contact numbers for known caregivers / representatives who currently or will assist patient after discharge: Jasbir Jerome - LAURA and [facility] [phone] [facility] [phone] * Verbal permission to speak to the caregivers and representatives has been obtained from the patient. N/A * Community resources currently utilized Assisted Living * Please name any agencies selected above. [facility] * Additional services required to return to the preadmission environment? Yes * Can the patient safely return to the preadmission environment? No * Has this patient been hospitalized within the prior 30 days at any hospital? Yes External Providers External Provider: [facility] Next Contact Date: Service Request Date: Service Type: Resolution: Reviewer: Comments: Last DP export: 05/16/18 10:55 Patient Name: LIOR SHAH Page 78663 at 1223 All edits/amendments must be made on the electronic document DICTATION DATE: 05/16/181222 PHOTORADIO OPERATOR: INOCENCIO 05/16/181222 RPT#: [id number] DC DATE: STATUS: ADM [facility] [address] [place] [address] END OF REPORT
--- NOTE | ~2018-05-15 | MORECARE ---
CASE MANAGEMENT DISCHARGE SUMMARY PATIENT: LIOR SHAH UNIT: [id number] ADM DATE: 05/16/18 AGE: 82 : 35 SEX: F ROOM/BED: D.2229 AUTHOR: ELLIOTTDOC PHYSICIAN: REFERRING PHYSICIAN: BLACK HERNÁNDEZ DO DATE OF SERVICE: 05/17/18 Discharge Plan Patient Name: LIOR SHAH Facility: [facility]:[place] : 1935 Planned Disposition: Longterm Facility Anticipated Discharge Date: Discharge Date: Expected LOS: Initial Reviewer: [email or web address] Initial Review Date: 05/15/2018 Generated: 05/17/18 10:23 am Comments DCP- Discharge Planning Updated by [email or web address]: Cathleen Heath on 05/17/18 8:[address] I SPOKE WITH SOURAV AT [facility] AND INFORMED HER THAT THE PATIENT HAD 3 MIDNIGHTS AND WAS DISCHARGED 04/20 AND WOULD BE READY FOR DISCHARGE TODAY IF ACCEPTED. DC SUMMARY FROM 04/20 AND THERAPY NOTES FAXED TO [facility]. CM WILL CONTINUE TO FOLLOW AND ASSIST WITH DISCHARGE PLANNING/NEEDS. DCP- Discharge Planning Updated by [email or web address]: Cathleen Heath on 05/16/18 11:[address] Spoke with Mimi at [facility] and clinical faxed for SNF. CM will continue to follow and assist with discharge planning/needs. DCP- Discharge Planning Updated by [email or web address]: Cathleen Heath on 05/16/18 10:[address] Patient Name: LIOR SHAH Admission Status: ER Accout number: [id number] Admission Date: 05-16-2018 : 1935 Admission Diagnosis: Attending: BLACK HERNÁNDEZ Current LOS: 1 Anticipated DC Date: Planned Disposition: Longterm Facility Primary Insurance: MEDICARE A & B Discharge Planning Comments: CM met with patient, she is asleep. I called her daughter, AUBRIE, to discuss discharge planning. She states her mother lives at [facility] living with her . States she will not be able to return. Jasbir (daughter) states she is [facility], but would like ther mother to go to [facility] to SNF prior to going to an assisted living. I spoke with Dr. Hernández's nurse, Ashlee, orders received. CM will continue to follow and assist with discharge planning/needs. Printing Roller Polisher: Cathleen Heath MOPIA - Discharge Planning Initial Assessment Updated by [email or web address]: Cathleen Heath on 05/16/18 11:43 am * Is the patient Alert and Oriented? No * How many steps to enter\exit or inside your home? 0/0 * PCP Dr. Hernández * Pharmacy [place] * Preadmission Environment Assisted Living * Facility Name [facility] * ADLs Partial Dependent * Partial ADLs (Assistance needed) Ambulation Bathing Medication Management Transfers * Equipment Bedside Commode Other Rolling Walker Shower Chair * Other Equipment Transfer chair * List name and contact numbers for known caregivers / representatives who currently or will assist patient after discharge: Jasbir Gautam DTR and [facility] - [phone] [facility] [phone] * Verbal permission to speak to the caregivers and representatives has been obtained from the patient. N/A * Community resources currently utilized Assisted Living * Please name any agencies selected above. [facility] * Additional services required to return to the preadmission environment? Yes * Can the patient safely return to the preadmission environment? No * Has this patient been hospitalized within the prior 30 days at any hospital? Yes Last DP export: 05/16/18 11:23 Patient Name: LIOR SHAH Page [id number] at 0923 All edits/amendments must be made on the electronic document DICTATION DATE: 05/17/18921 HABILITATION ASSISTANT: INOCENCIO 05/17/18921 RPT#: [id number] DC DATE: STATUS: ADM IN [facility] [address] [place] [address] END OF REPORT
--- NOTE | ~2018-05-15 | MORECARE ---
CASE MANAGEMENT DISCHARGE SUMMARY PATIENT: LIOR SHAH UNIT: [id number] ADM DATE: 05/16/18 AGE: 82 : 35 SEX: F ROOM/BED: D.2229 AUTHOR: DONI GALLAGHER PHYSICIAN: REFERRING PHYSICIAN: BLACK HERNÁNDEZ DO DATE OF SERVICE: 05/17/18 Discharge Plan Patient Name: LIOR SHAH Facility: [facility]:[place] : 1935 Planned Disposition: Half-Way Facility Anticipated Discharge Date: Discharge Date: Expected LOS: Initial Reviewer: [email or web address] Initial Review Date: 05/15/2018 Generated: 05/17/18 11:30 am Comments DCP- Discharge Planning Updated by [email or web address]: Cathleen Heath on 05/17/18 9:[address] Received a call from [facility] that they can accept patient to a skilled (Medicare) bed. I called patient's daughter and she is agreeable to plan, she would like a private room if possible but states is still agreeable if a private room is not available. I called Dr. Hernández's office and notified his nurse. CM will continue to follow and assist with discharge planning/needs. DCP- Discharge Planning Updated by [email or web address]: Cathleen Heath on 05/17/18 8:[address] I SPOKE WITH SOURAV AT [facility] AND INFORMED HER THAT THE PATIENT HAD 3 MIDNIGHTS AND WAS DISCHARGED 04/20 AND WOULD BE READY FOR DISCHARGE TODAY IF ACCEPTED. DC SUMMARY FROM 04/20 AND THERAPY NOTES FAXED TO [facility]. CM WILL CONTINUE TO FOLLOW AND ASSIST WITH DISCHARGE PLANNING/NEEDS. DCP- Discharge Planning Updated by [email or web address]: Cathleen Heath on 05/16/18 11:[address] [facility] for SNF. CM will continue to follow and assist with discharge planning/needs. DCP- Discharge Planning Updated by [email or web address]: Cathleen Heath on 05/16/18 10:[address] Patient Name: LIOR SHAH Admission Status: ER Accout number: [id number] Admission Date: 05-16-2018 : 1935 Admission Diagnosis: Attending: BLACK HERNÁNDEZ Current LOS: 1 Anticipated DC Date: Planned Disposition: Half-Way Facility Primary Insurance: MEDICARE A & B Discharge Planning Comments: CM met with patient, she is asleep. I called her daughter, AUBRIE, to discuss discharge planning. She states her mother lives at [facility] assisted [facility] with her . States she will not be able to return. Jasbir (daughter) states she is looking at [facility] on [facility], but would like ther mother to go to [facility] to SNF prior to going to an assisted living. I spoke with Dr. Hernández's nurse, Ashlee, orders received. CM will continue to follow and assist with discharge planning/needs. Button Sewing Machine Operator: Cathleen Heath DCPIA - Discharge Planning Initial Assessment Updated by [email or web address]: Cathleen Heath on 05/16/18 11:43 am * Is the patient Alert and Oriented? No * How many steps to enter\exit or inside your home? 0/0 * PCP Dr. Hernández * Pharmacy [facility] * Preadmission Environment Assisted Living * Facility Name [facility] * ADLs Partial Dependent * Partial ADLs (Assistance needed) Ambulation Bathing Medication Management Transfers * Equipment Bedside Commode Other Rolling Walker Shower Chair * Other Equipment Transfer chair * List name and contact numbers for known caregivers / representatives who currently or will assist patient after discharge: Jasbir Justus - LAURA and AUBRIE [facility] [phone] [facility] [phone] * Verbal permission to speak to the caregivers and representatives has been obtained from the patient. N/A * Community resources currently utilized Assisted Living * Please name any agencies selected above. [facility] * Additional services required to return to the preadmission environment? Yes * Can the patient safely return to the preadmission environment? No * Has this patient been hospitalized within the prior 30 days at any hospital? Yes Last DP export: 05/17/18 8:23 Patient Name: LIOR SHAH Page [id number] at 1030 All edits/amendments must be made on the electronic document DICTATION DATE: 05/17/18 1029 ENERGY CONSERVATION TECHNICIAN: INOCENCIO 05/17/18 1029 RPT#: [id number] DC DATE: STATUS: ADM IN [facility] [address] [place] [address] END OF REPORT
--- NOTE | ~2018-05-15 | MORECARE ---
CASE MANAGEMENT DISCHARGE SUMMARY PATIENT: LIOR SHAH UNIT: [id number] ADM DATE: 05/16/18 AGE: 82 : 35 SEX: F ROOM/BED: D.2229 AUTHOR: DONI GALLAGHER PHYSICIAN: REFERRING PHYSICIAN: BLACK HERNÁNDEZ DO DATE OF SERVICE: 05/16/18 Discharge Plan Patient Name: LIOR SHAH [facility] 1935 Planned Disposition: Snf Facility Anticipated Discharge Date: Discharge Date: Expected LOS: Initial Reviewer: [email or web address] Initial Review Date: 05/15/2018 Generated: 05/16/18 12:35 pm Patient Name: LIOR SHAH Page [id number] at 1135 All edits/amendments must be made on the electronic document DICTATION DATE: 05/16/18 1134 WATER SPONGER: INOCENCIO 05/16/18 1134 RPT#: [id number] DC DATE: STATUS: ADM IN [facility] [address] [place] [address] END OF REPORT
--- NOTE | ~2018-05-15 | MORECARE ---
CASE MANAGEMENT DISCHARGE SUMMARY PATIENT: LIOR SHAH UNIT: [id number] ADM DATE: 05/16/18 AGE: 82 : 35 SEX: F ROOM/BED: D.2229 AUTHOR: DONI GALLAGHER PHYSICIAN: REFERRING PHYSICIAN: BLACK HERNNÁDEZ DO DATE OF SERVICE: 05/16/18 Discharge Plan Patient Name: LIOR SHAH Facility: [facility]:[place] : 1935 Planned Disposition: Nursing Home Facility Anticipated Discharge Date: Discharge Date: Expected LOS: Initial Reviewer: [email or web address] Initial Review Date: 05/15/2018 Generated: 05/16/18 12:55 pm Comments DCP- Discharge Planning Updated by [email or web address]: Cathleen Heath on 05/16/18 10:[address] Patient Name: LIOR SHAH Admission Status: ER Accout number: [id number] Admission Date: 05-16-2018 : 1935 Admission Diagnosis: Attending: BLACK HERNÁNDEZ Current LOS: 1 Anticipated DC Date: Planned Disposition: Nursing Home Facility Primary Insurance: MEDICARE A & B Discharge Planning Comments: CM met with patient, she is asleep. I called her daughter, AUBRIE, to discuss discharge planning. She states her mother lives at [facility] assisted living with her . States she will not be able to return. Jasbir (daughter) states she is looking [facility], but would like ther mother to go to [facility] to SNF prior to going to an assisted living. I spoke with Dr. Hernández's nurse, Ashlee, nolan received. CM will continue to follow and assist with discharge planning/needs. Continuous Washer Operator: Cathleen Heath DCPIA - Discharge Planning Initial Assessment Updated by [email or web address]: Cathleen Heath on 05/16/18 11:43 am * Is the patient Alert and Oriented? No * How many steps to enter\exit or inside your home? 0/0 * PCP Dr. Hernández * Pharmacy [place] * Preadmission Environment Assisted Living * Facility Name [facility] * ADLs Partial Dependent * Partial ADLs (Assistance needed) Ambulation Bathing Medication Management Transfers * Equipment Bedside Commode Other Rolling Walker Shower Chair * Other Equipment Transfer chair * List name and contact numbers for known caregivers / representatives who currently or will assist patient after discharge: Jasbir Jerome - LAURA and [facility] - [phone] [facility] [phone] * Verbal permission to speak to the caregivers and representatives has been obtained from the patient. N/A * Community resources currently utilized Assisted Living * Please name any agencies selected above. [facility] [place] * Additional services required to return to the preadmission environment? Yes * Can the patient safely return to the preadmission environment? No * Has this patient been hospitalized within the prior 30 days at any hospital? Yes Last DP export: 05/16/18 10:47 Patient Name: LIOR SHAH Page [id number] at 1155 All edits/amendments must be made on the electronic document DICTATION DATE: 05/16/18 1155 INSTRUCTOR TECHNICAL TRAINING: INOCENCIO 05/16/18 1155 RPT#: [id number] DC DATE: STATUS: ADM IN [facility] [address] [place] [address] END OF REPORT
[2018-05-15 12:12] LABS: APPEARANCE CLEAR (CLEAR); BILIRUBIN NEGATIVE (NEGATIVE); COLOR YELLOW (YELLOW); GLUCOSE NEGATIVE (NEGATIVE); KETONE NEGATIVE (NEGATIVE); NITRITE NEGATIVE (NEGATIVE); PROTEIN NEGATIVE (NEGATIVE); SPECIFIC GRAVITY 1.015 (1.005-1.020); UROBILINOGEN NORMAL (NORMAL)
[2018-05-15 12:23] LABS: BASOPHILS 0.2 % (0-2); EOSINOPHILS 0.4 % (0-7); HEMATOCRIT 35.6 % (36.0-48.0); HEMOGLOBIN 11.7 g/dL (12-16); IMMATURE GRANULOCYTES 0.3 % (0-5); LYMPHOCYTES 10.3 % (15-50); MCH 27.3 pg (26.0-34.0); MCHC 32.9 g/dL (31.0-37.0); MCV 83.2 fL (80.0-100.0); MONOCYTES 8.1 % (2-11); NEUTROPHILS 80.7 % (40-80); PLATELET COUNT 139 10x3/uL (130-400); RBC 4.28 10x6/uL (4.00-5.40); RDW 17.8 % (11.5-14.5); WBC 11.7 10x3/uL (4.8-10.8)
[2018-05-15 12:37] LABS: ALBUMIN 3.5 g/dL (3.4-5.0); ANION GAP 15.2 mmol/L (8-16); BILIRUBIN - TOTAL 0.56 mg/dL (0.2-1.3); CALCIUM 9.2 mg/dL (8.5-10.1); CARBON DIOXIDE 22.9 mmol/L (21.0-32.0); POTASSIUM - SERUM 4.1 mmol/L (3.5-5.1); PROTEIN - SERUM 6.9 g/dL (6.4-8.2)
[2018-05-15] MEDS ORDERED: MEGACE400 MG/10 PO (14:59)
[2018-05-15 16:02] VITALS: BP 130/76; BMI 20.6
[2018-05-15 17:01] VITALS: BP 117/55
[2018-05-15 20:58] VITALS: BP 117/50
[2018-05-16 04:49] LABS: BASOPHILS 0.3 % (0-2); HEMATOCRIT 33.4 % (36.0-48.0); HEMOGLOBIN 10.7 g/dL (12-16); IMMATURE GRANULOCYTES 0.2 % (0-5); LYMPHOCYTES 23.3 % (15-50); MCV 84.3 fL (80.0-100.0); MEAN PLATELET VOLUME 10.1 fL (7.4-10.4); MONOCYTES 10.7 % (2-11); NEUTROPHILS 63.5 % (40-80); PLATELET COUNT 153 10x3/uL (130-400); RBC 3.96 10x6/uL (4.00-5.40); RDW 17.9 % (11.5-14.5)
[2018-05-16 04:57] LABS: WBC 6.5 10x3/uL (4.8-10.8)
[2018-05-16 05:01] LABS: INR 1.31 (0.85-1.17); PROTIME 15.8 SECONDS (11.6-15.0)
[2018-05-16 05:12] LABS: ALBUMIN 3.2 g/dL (3.4-5.0); ANION GAP 14.8 mmol/L (8-16); BILIRUBIN - TOTAL 0.65 mg/dL (0.2-1.3); CALCIUM 9.1 mg/dL (8.5-10.1); CARBON DIOXIDE 24.3 mmol/L (21.0-32.0); POTASSIUM - SERUM 4.1 mmol/L (3.5-5.1); PROTEIN - SERUM 6.9 g/dL (6.4-8.2)
[2018-05-16 06:07] VITALS: BP 125/57
[2018-05-16 08:18] VITALS: BP 124/57
[2018-05-16 12:16] VITALS: BP 122/59
[2018-05-16 14:10] VITALS: Ht 162.6 cm; Wt 54.4 kg
[2018-05-16 15:58] VITALS: BP 118/60
[2018-05-16 20:00] VITALS: BP 155/59
[2018-05-17 04:41] LABS: BASOPHILS 0.3 % (0-2); EOSINOPHILS 1.4 % (0-7); HEMATOCRIT 33.6 % (36.0-48.0); IMMATURE GRANULOCYTES 0.3 % (0-5); LYMPHOCYTES 19.2 % (15-50); MCH 27.5 pg (26.0-34.0); MCHC 32.7 g/dL (31.0-37.0); MEAN PLATELET VOLUME 9.8 fL (7.4-10.4); MONOCYTES 8.9 % (2-11); NEUTROPHILS 69.9 % (40-80); PLATELET COUNT 145 10x3/uL (130-400); RDW 17.7 % (11.5-14.5); WBC 7.7 10x3/uL (4.8-10.8)
[2018-05-17 04:58] LABS: ALBUMIN 3.4 g/dL (3.4-5.0); ANION GAP 15.9 mmol/L (8-16); BILIRUBIN - TOTAL 0.69 mg/dL (0.2-1.3); CALCIUM 9.7 mg/dL (8.5-10.1); CARBON DIOXIDE 25.1 mmol/L (21.0-32.0); CREATININE - SERUM 0.9 mg/dL (0.6-1.3); PROTEIN - SERUM 7.2 g/dL (6.4-8.2)
[2018-05-17 06:00] VITALS: BP 149/56
[2018-05-17 09:07] VITALS: BP 124/58
[2018-05-17] MEDS ORDERED: DILAUDID2 MG PO (11:06)
[2018-05-17 12:29] VITALS: BP 113/54
== END 2018-05-17 14:10 | DRG 552 ==
LOC: D.ER 10:15 → OBSVTIME 14:32 → D.MS 14:32
PROVIDERS: Family Medicine
DX: S32.019A Unspecified fracture of first lumbar vertebra, initial encounter for closed fracture (principal); W19.XXXA Unspecified fall, initial encounter; R41.0 Disorientation, unspecified; E11.9 Type 2 diabetes mellitus without complications; I48.91 Unspecified atrial fibrillation; F41.9 Anxiety disorder, unspecified; R40.2362 Coma scale, best motor response, obeys commands, at arrival to emergency department; R40.2132 Coma scale, eyes open, to sound, at arrival to emergency department; R40.2242 Coma scale, best verbal response, confused conversation, at arrival to emergency department; R53.1 Weakness; G20 Parkinson's disease; R25.1 Tremor, unspecified

== ENCOUNTER 2018-06-13 12:22 | Day surgery (SDC) | payer MEDICARE, BC ==
[~2018-06-13] VITALS: Ht 165.1 cm; Wt 68.2 kg
--- NOTE | ~2018-06-13 | MORECARE ---
CASE MANAGEMENT DISCHARGE SUMMARY PATIENT: LIOR SHAH UNIT: [id number] ADM DATE: 06/13/18 AGE: 82 : 35 SEX: F ROOM/BED: D.2220 AUTHOR: DONI GALLAGHER PHYSICIAN: REFERRING PHYSICIAN: TRACEY NIEVES MD DATE OF SERVICE: 06/14/18 Discharge Plan Patient Name: LIOR SHAH [facility] [facility] 1935 Planned Disposition: Anticipated Discharge Date: Discharge Date: Expected LOS: Initial Reviewer: Initial Review Date: 06/13/2018 Generated: 06/14/18 2:59 pm Comments DCP- Discharge Planning Updated by [email or web address]: Linh Houser on 06/14/18 12:[address] SLICK WITH DIETARY STATED THAT HE HAS SPOKE WITH THE NURSE DIMAS ABOUT THE PLAN TO START FEEDINGS TOMORROW AT 10:30. I INFORMED URANIUM PROCESSING SUPERVISOR ABOUT THE PLAN AND HOW IF PATIENT TOLERATES THE FEEDINGS THAT SHE CAN BE DISCHARGED BACK TO [place] PER JAMI. CM WILL CONTINUE TO FOLLOW AND ASSIST WITH DC PLANNING DCP- Discharge Planning Updated by [email or web address]: Linh Houser on 06/14/18 12:[address] JAMI AT [facility] STATED THAT THEY COULD NOT ACCEPT THE PATIENT TILL THEY KNEW THAT SHE COULD TOLERATE HER FEEDINGS. ONCE WE KNOW THAT SHE CAN TOLERATE HER FEEDING THEY WILL TAKE HER BACK. EVEN TOMORROW ON Last DP export: 06/14/18 12:23 Patient Name: LIOR SHAH Page [id number] at 1359 All edits/amendments must be made on the electronic document DICTATION DATE: 06/14/18 1358 CLUB CAR ATTENDANT: INOCENCIO 06/14/18 1358 RPT#: [id number] DC DATE: STATUS: ADM IN [facility] [address] [place] [address] END OF REPORT
--- NOTE | ~2018-06-13 | MORECARE ---
CASE MANAGEMENT DISCHARGE SUMMARY PATIENT: LIOR SHAH UNIT: [id number] ADM DATE: 06/13/18 AGE: 82 : 35 SEX: F ROOM/BED: D.2220 AUTHOR: DONI GALLAGHER PHYSICIAN: REFERRING PHYSICIAN: TRACEY NIEVES MD DATE OF SERVICE: 06/14/18 Discharge Plan Patient Name: LIOR SHAH [facility] [facility] 1935 Planned Disposition: Anticipated Discharge Date: Discharge Date: Expected LOS: Initial Reviewer: [email or web address] Initial Review Date: 06/13/2018 Generated: 06/14/18 2:52 pm Comments DCP- Discharge Planning Updated by [email or web address]: Linh Houser on 06/14/18 12:[address] SLICK WITH DIETARY STATED THAT HE HAS SPOKE WITH THE NURSE DIMAS ABOUT THE PLAN TO START FEEDINGS TOMORROW AT 10:30. I INFORMED MOTOR WINDER ABOUT THE PLAN AND HOW IF PATIENT TOLERATES THE FEEDINGS THAT SHE CAN BE DISCHARGED BACK TO [place] PER JAMI. CM WILL CONTINUE TO FOLLOW AND ASSIST WITH DC PLANNING DCP- Discharge Planning Updated by [email or web address]: Linh Houser on 06/14/18 12:[address] JAMI AT [facility] STATED THAT THEY COULD NOT ACCEPT THE PATIENT TILL THEY KNEW THAT SHE COULD TOLERATE HER FEEDINGS. ONCE WE KNOW THAT SHE CAN TOLERATE HER FEEDING THEY WILL TAKE HER BACK. EVEN TOMORROW ON Last DP export: 06/14/18 12:23 Patient Name: LIOR SHAH Page 13005 at 1352 All edits/amendments must be made on the electronic document DICTATION DATE: 06/14/18 1351 INSTRUMENTATION TECH: INOCENCIO 06/14/18 1351 RPT#: [id number] DC DATE: STATUS: ADM IN [facility] [address] [place] [address] END OF REPORT
--- NOTE | ~2018-06-13 | MORECARE ---
CASE MANAGEMENT DISCHARGE SUMMARY PATIENT: LIOR SHAH UNIT: [id number] ADM DATE: 06/13/18 AGE: 82 : 35 SEX: F ROOM/BED: D.2220 AUTHOR: ELLIOTTDOC PHYSICIAN: REFERRING PHYSICIAN: TRACEY NIEVES MD DATE OF SERVICE: 06/19/18 Discharge Plan Patient Name: LIOR SHAH Facility: [facility]:[place] : 1935 Planned Disposition: Anticipated Discharge Date: Discharge Date: 06/17/2018 Expected LOS: 0 Initial Reviewer: [email or web address] Initial Review Date: 06/13/2018 Generated: 06/19/18 11:14 am Comments DCP- Discharge Planning Updated by [email or web address]: Shantell Arora on 06/17/18 3:[address] LATE ENTRY 1000 PATIENT FOR DISCHARGE BACK TO [facility] TODAY. CM TELEPHONED [phone] SPOKE WITHPaul GALICIA. PATIENT CAN RETURN TODAY. MONY WOULD BE THE RECEIVING NURSE. PRIMARY NURSE TO CALL AND GIVE HER REPORT. PATIENT IS PRESENTLY ON NASAL OXYGEN AT 3/L VIA CANNULA. PRIMARY NURSE WILL ADVISE MONY. PATIENT DOES NOT KEEP OXYGEN ON AT TIMES. NURSE CALLED REPORT. [facility] WILL SEND TRANSPORTATION. 1610 CM SPOKE WITH FRIDA. PATIENT WAS ADEMITTED TO A SKILLED BED. DCP- Discharge Planning Updated by [email or web address]: Linh Houser on 06/14/18 12:[address] SLICK WITH DIETARY STATED THAT HE HAS SPOKE WITH THE NURSE DIMAS ABOUT THE PLAN TO START FEEDINGS TOMORROW AT 10:30. I INFORMED ROUNDING MACHINE OPERATOR ABOUT THE PLAN AND HOW IF PATIENT TOLERATES THE FEEDINGS THAT SHE CAN BE DISCHARGED BACK TO [facility] PER JAMI. CM WILL CONTINUE TO FOLLOW AND ASSIST WITH DC PLANNING DCP- Discharge Planning Updated by [email or web address]: Linh Houser on 06/14/18 12:[address] [facility] ST[facility] THAT THEY COULD NOT ACCEPT THE PATIENT TILL THEY KNEW THAT SHE COULD TOLERATE HER FEEDINGS. ONCE WE KNOW THAT SHE CAN TOLERATE HER FEEDING THEY WILL TAKE HER BACK. EVEN TOMORROW ON Last DP export: 06/17/18 3:30 Patient Name: LIOR SHAH Page 23915 at 1014 All edits/amendments must be made on the electronic document DICTATION DATE: 06/19/18 1014 CANVAS SHOP LABORER: INOCENCIO 06/19/18 1014 RPT#: [id number] DC DATE:06/17/18 STATUS: DIS IN [facility] [address] [place] [address] END OF REPORT
--- NOTE | ~2018-06-13 | MORECARE ---
CASE MANAGEMENT DISCHARGE SUMMARY PATIENT: LIOR SHAH UNIT: [id number] ADM DATE: 06/13/18 AGE: 82 : 35 SEX: F ROOM/BED: D.2220 AUTHOR: ELLIOTTDOC PHYSICIAN: REFERRING PHYSICIAN: TRACEY NIEVES MD DATE OF SERVICE: 06/17/18 Discharge Plan Patient Name: LIOR SHAH Facility: [facility]:[place] : 1935 Planned Disposition: Anticipated Discharge Date: Discharge Date: 06/17/2018 Expected LOS: Initial Reviewer: [email or web address] Initial Review Date: 06/13/2018 Generated: 06/17/18 5:30 pm Comments DCP- Discharge Planning Updated by [email or web address]: Shantell Arora on 06/17/18 3:[address] LATE ENTRY 1000 PATIENT FOR DISCHARGE BACK TO [facility] TODAY. CM TELEPHONED [phone] SPOKE WITHPaul GALICIA. PATIENT CAN RETURN TODAY. MONY WOULD BE THE RECEIVING NURSE. PRIMARY NURSE TO CALL AND GIVE HER REPORT. PATIENT IS PRESENTLY ON NASAL OXYGEN AT 3/L VIA CANNULA. PRIMARY NURSE WILL ADVISE MONY. PATIENT DOES NOT KEEP OXYGEN ON AT TIMES. NURSE CALLED REPORT. [facility] WILL SEND TRANSPORTATION. 1610 CM SPOKE WITH FRIDA. PATIENT WAS ADEMITTED TO A SKILLED BED. DCP- Discharge Planning Updated by [email or web address]: Linh Houser on 06/14/18 12:[address] SLICK WITH DIETARY STATED THAT HE HAS SPOKE WITH THE NURSE DIMAS ABOUT THE PLAN TO START FEEDINGS TOMORROW AT 10:30. I INFORMED COCKTAIL SERVER ABOUT THE PLAN AND HOW IF PATIENT TOLERATES THE FEEDINGS THAT SHE CAN BE DISCHARGED BACK TO [place] PER JAMI. CM WILL CONTINUE TO FOLLOW AND ASSIST WITH DC PLANNING DCP- Discharge Planning Updated by [email or web address]: Linh Houser on 06/14/18 12:[address] [facility] AT [facility] ST[facility] THAT THEY COULD NOT ACCEPT THE PATIENT TILL THEY KNEW THAT SHE COULD TOLERATE HER FEEDINGS. ONCE WE KNOW THAT SHE CAN TOLERATE HER FEEDING THEY WILL TAKE HER BACK. EVEN TOMORROW ON Last DP export: 06/14/18 12:59 Patient Name: LIOR SHAH Page 13628 at 1630 All edits/amendments must be made on the electronic document DICTATION DATE: 06/17/18 1630 BANDER OPERATOR: INOCENCIO 06/17/18 1630 RPT#: [id number] DC DATE:06/17/18 STATUS: DIS IN [facility] [address] [place] [address] END OF REPORT
--- NOTE | ~2018-06-13 | MORECARE ---
CASE MANAGEMENT DISCHARGE SUMMARY PATIENT: LIOR SHAH UNIT: [id number] ADM DATE: 06/13/18 AGE: 82 : 35 SEX: F ROOM/BED: D.2220 AUTHOR: DONI GALLAGHER PHYSICIAN: REFERRING PHYSICIAN: TRACEY NIEVES MD DATE OF SERVICE: 06/14/18 Discharge Plan Patient Name: LIOR SHAH [facility] : 1935 Planned Disposition: Anticipated Discharge Date: Discharge Date: Expected LOS: Initial Reviewer: [email or web address] Initial Review Date: 06/13/2018 Generated: 06/14/18 2:03 pm Patient Name: LIOR SHAH Page [phone] at 1303 All edits/amendments must be made on the electronic document DICTATION DATE: 06/14/18 1303 BANDAGE MAKER: INOCENCIO 06/14/18 1303 RPT#: [id number] DC DATE: STATUS: ADM IN [facility] [address] [place] [address] END OF REPORT
--- NOTE | ~2018-06-13 | MORECARE ---
CASE MANAGEMENT DISCHARGE SUMMARY PATIENT: LIOR SHAH UNIT: [id number] ADM DATE: 06/13/18 AGE: 82 : 35 SEX: F ROOM/BED: D.2220 AUTHOR: DONI GALLAGHER PHYSICIAN: REFERRING PHYSICIAN: TRACYE NIEVES MD DATE OF SERVICE: 06/14/18 Discharge Plan Patient Name: LIOR SHAH Facility: [facility]:[place] : 1935 Planned Disposition: Anticipated Discharge Date: Discharge Date: Expected LOS: Initial Reviewer: [email or web address] Initial Review Date: 06/13/2018 Generated: 06/14/18 2:23 pm Comments DCP- Discharge Planning Updated by [email or web address]: Linh Houser on 06/14/18 12:[address] JAMI AT [facility] STATED THAT THEY COULD NOT ACCEPT THE PATIENT TILL THEY KNEW THAT SHE COULD TOLERATE HER FEEDINGS. ONCE WE KNOW THAT SHE CAN TOLERATE HER FEEDING THEY WILL TAKE HER BACK. EVEN TOMORROW ON Last DP export: 06/14/18 12:03 Patient Name: LIOR SHAH Page 48512 at 1323 All edits/amendments must be made on the electronic document DICTATION DATE: 06/14/18 132 CUT OFF OPERATOR SCORER: INOCENCIO 06/14/18 1322 RPT#: [id number] DC DATE: STATUS: ADM IN [facility] [address] [place] [address] END OF REPORT
--- NOTE | ~2018-06-13 | OP ---
PATIENT NAME: LIOR SHAH MEDICAL RECORD: [id number] :[birth year] LOCATION:D.MS [id number] ADMISSION DATE:06/13/18 SURGEON: EREN GIPSON MD DATE OF OPERATION: 06/14/2018 PREOPERATIVE DIAGNOSES: 1. Acute malnutrition. 2. Dysphagia. POSTOPERATIVE DIAGNOSES: 1. Acute malnutrition. 2. Dysphagia. PROCEDURES: 1. Esophagogastroduodenoscopy with antral biopsies to rule out H. pylori. 2. Percutaneous endoscopic gastrostomy tube placement, 20-Ukrainian. SURGEON: Eren Gipson MD COMPUTATIONAL SCIENTIST: None. BLOOD LOSS: Minimal. ANESTHESIA: Local with IV sedation. COMPLICATIONS: None. The risks, possible complications, and alternatives to the procedure were explained to the patient's family. They elected to proceed. OPERATIVE COURSE: The patient was conveyed to the GI lab on 06/14/2018. IV sedation was induced by the anesthesia staff. The abdomen was cleansed with Betadine. A bite block was inserted. A gastroscope was inserted into the mouth. It was advanced easily into the hypopharynx. The esophagus was easily intubated as were the stomach and duodenum. Upon withdrawal, retroflexed and angulus views were obtained. Antral biopsies were obtained. I then indented the anterior abdominal wall skin. I was able to visualize this endoscopically. Local anesthetic was used to infiltrate the skin and subcutaneous tissues in the left upper quadrant. A skin incision was accomplished. Through the skin incision, I inserted an Angiocath and punctured the fundus of the stomach on the first try. A wire was advanced. This was grasped with an endoscopic snare and was withdrawn out through the mouth. The wire was attached to a pull-type gastrostomy tube, which was then pulled into place. Hub and flange devices were attached. I then re-endoscoped the patient's esophagus and stomach. There had been no evidence of false passage or perforation. The endoscope was then withdrawn under direct vision. We are going to be starting to use the feeding tube for medicines today and we will start feeding the patient through the feeding tube tomorrow. I have called the patient's daughter and explained the operative findings today. TRANSINT:[id number] Voice Confirmation ID: [id number] DOCUMENT ID: [id number] OPERATIVE REPORT [id number] LIOR SHAH ROBERT MD at 1653 CC: TRACEY NIEVES MD [id number] DICTATION DATE: 06/14/18 1042 BRANCH SERVICE ASSOCIATE: 06/14/18 1136 ADM IN [place] [facility] [id number] [place] [address]
[~2018-06-13 12:22] MED LIST changes: +DILAUDID2 MG PO; +MEGACE400 MG/10 PO
[2018-06-13 18:10] VITALS: BP 136/63; BMI 25.0
[2018-06-13 21:33] VITALS: BP 149/65
[2018-06-14 01:38] VITALS: BP 105/53
[2018-06-14 04:45] VITALS: BP 130/57
[2018-06-14 10:37] VITALS: Ht 165.1 cm; Wt 68.2 kg
[2018-06-14 10:59] LABS: ANION GAP 12.1 mmol/L (8-16); CALCIUM 8.8 mg/dL (8.5-10.1); CARBON DIOXIDE 23.9 mmol/L (21.0-32.0)
[2018-06-14 11:03] LABS: BASOPHILS 0.5 % (0-2); EOSINOPHILS 1.6 % (0-7); HEMATOCRIT 35.3 % (36.0-48.0); HEMOGLOBIN 11.2 g/dL (12-16); IMMATURE GRANULOCYTES 0.8 % (0-5); LYMPHOCYTES 26.1 % (15-50); MCH 27.2 pg (26.0-34.0); MCHC 31.7 g/dL (31.0-37.0); MCV 85.7 fL (80.0-100.0); MEAN PLATELET VOLUME 10.2 fL (7.4-10.4); PLATELET COUNT 170 10x3/uL (130-400); RBC 4.12 10x6/uL (4.00-5.40); RDW 17.4 % (11.5-14.5); WBC 6.3 10x3/uL (4.8-10.8)
[2018-06-14 20:00] VITALS: BP 95/48
[2018-06-15] VITALS: BP 97/46
[2018-06-15 04:00] VITALS: BP 97/46
[2018-06-15 06:25] LABS: BASOPHILS 0.2 % (0-2); EOSINOPHILS 0.4 % (0-7); HEMATOCRIT 32.7 % (36.0-48.0); HEMOGLOBIN 10.4 g/dL (12-16); IMMATURE GRANULOCYTES 0.4 % (0-5); LYMPHOCYTES 10.9 % (15-50); MCH 27.1 pg (26.0-34.0); MCHC 31.8 g/dL (31.0-37.0); MCV 85.2 fL (80.0-100.0); MEAN PLATELET VOLUME 10.5 fL (7.4-10.4); MONOCYTES 7.5 % (2-11); NEUTROPHILS 80.6 % (40-80); PLATELET COUNT 158 10x3/uL (130-400); RBC 3.84 10x6/uL (4.00-5.40); RDW 17.4 % (11.5-14.5)
[2018-06-15 06:26] LABS: WBC 11.4 10x3/uL (4.8-10.8)
[2018-06-15 07:38] LABS: ANION GAP 17.1 mmol/L (8-16); CALCIUM 8.6 mg/dL (8.5-10.1); CARBON DIOXIDE 19.8 mmol/L (21.0-32.0); CREATININE - SERUM 1.1 mg/dL (0.6-1.3); MAGNESIUM - SERUM 2.4 mg/dL (1.8-2.4); PHOSPHOROUS 4.7 mg/dL (2.5-4.9); POTASSIUM - SERUM 3.9 mmol/L (3.5-5.1)
[2018-06-15 08:41] VITALS: BP 137/54
[2018-06-15 08:53] VITALS: BP 118/57
[2018-06-15 12:44] VITALS: BP 109/53
[2018-06-15 20:00] VITALS: BP 110/54
[2018-06-16] VITALS: BP 115/55
[2018-06-16 04:00] VITALS: BP 124/54
[2018-06-16 05:53] LABS: BASOPHILS 0.3 % (0-2); EOSINOPHILS 1.4 % (0-7); HEMATOCRIT 32.3 % (36.0-48.0); HEMOGLOBIN 10.3 g/dL (12-16); IMMATURE GRANULOCYTES 0.8 % (0-5); MCH 26.9 pg (26.0-34.0); MCHC 31.9 g/dL (31.0-37.0); MCV 84.3 fL (80.0-100.0); MEAN PLATELET VOLUME 10.5 fL (7.4-10.4); MONOCYTES 6.7 % (2-11); NEUTROPHILS 72.8 % (40-80); PLATELET COUNT 172 10x3/uL (130-400); RBC 3.83 10x6/uL (4.00-5.40); WBC 8.8 10x3/uL (4.8-10.8)
[2018-06-16 05:58] LABS: ANION GAP 14.6 mmol/L (8-16); CALCIUM 9.3 mg/dL (8.5-10.1); CARBON DIOXIDE 21.3 mmol/L (21.0-32.0); MAGNESIUM - SERUM 2.4 mg/dL (1.8-2.4); POTASSIUM - SERUM 3.9 mmol/L (3.5-5.1)
[2018-06-16 05:59] LABS: CREATININE - SERUM 0.8 mg/dL (0.6-1.3); PHOSPHOROUS 2.1 mg/dL (2.5-4.9)
[2018-06-16 09:00] VITALS: BP 140/59
[2018-06-16 12:30] VITALS: BP 113/74
[2018-06-16 16:27] VITALS: BP 134/66
[2018-06-16 19:55] VITALS: BP 123/62
[2018-06-17] VITALS: BP 112/63
[2018-06-17 04:00] VITALS: BP 119/55
[2018-06-17 07:45] LABS: BASOPHILS 0.2 % (0-2); EOSINOPHILS 1.7 % (0-7); HEMATOCRIT 35.2 % (36.0-48.0); HEMOGLOBIN 11.3 g/dL (12-16); IMMATURE GRANULOCYTES 0.7 % (0-5); LYMPHOCYTES 18.7 % (15-50); MCH 27.1 pg (26.0-34.0); MCHC 32.1 g/dL (31.0-37.0); MCV 84.4 fL (80.0-100.0); NEUTROPHILS 71.7 % (40-80); PLATELET COUNT 173 10x3/uL (130-400); RBC 4.17 10x6/uL (4.00-5.40); WBC 8.8 10x3/uL (4.8-10.8)
[2018-06-17 08:01] LABS: ANION GAP 14.9 mmol/L (8-16); CALCIUM 9.5 mg/dL (8.5-10.1); CARBON DIOXIDE 22.3 mmol/L (21.0-32.0); CREATININE - SERUM 0.9 mg/dL (0.6-1.3); MAGNESIUM - SERUM 2.2 mg/dL (1.8-2.4); PHOSPHOROUS 3.2 mg/dL (2.5-4.9); POTASSIUM - SERUM 4.2 mmol/L (3.5-5.1)
[2018-06-17 08:48] VITALS: BP 102/60
== END 2018-06-17 12:46 ==
LOC: D.OPS 12:22 → D.RAD 12:22 → EDSTATUS 13:00 → D.MS 17:26 → D.RAD 17:26 → D.MS 06-17 12:46 → D.OPS 06-17 12:46
PROVIDERS: Internal Medicine Nephrology; Surgery
PROC: 0DH63UZ Insertion of Feeding Device into Stomach, Percutaneous Approach (ICD-10-PCS; principal; 2018-06-14 08:00)
DX: R13.10 Dysphagia, unspecified (principal); E46 Unspecified protein-calorie malnutrition; I25.10 Atherosclerotic heart disease of native coronary artery without angina pectoris; I48.91 Unspecified atrial fibrillation; E11.9 Type 2 diabetes mellitus without complications